=== PATIENT | male | born 1955 | race Caucasian/White ===

== ENCOUNTER 2018-08-29 10:08 | Inpatient (IN) ==
[2018-08-29] MEDS ORDERED: Isovue-370 500 ML BOTTLE IVP ONE ×2 (11:04→11:19)
[2018-08-29] MEDS ORDERED: Ondansetron ODT 4 MG TAB.RAPDIS SL ONE (11:04)
[2018-08-29 11:08] LABS: Basophils # 0.1 K/mcL (0.0-0.2); Basophils % 0.8 %; Eosinophils % 0.1 %; Hematocrit 46.1 % (37.5-50.1); Hemoglobin 14.9 g/dL (12.9-16.9); Immature Granulocytes % 0.4 % (0-4); Lymphocytes # 1.7 K/mcL (0.6-4.6); Lymphocytes % 20.3 %; Mean Corpuscular HGB Conc 32.3 g/dL (31.6-35.5); Mean Corpuscular Hemoglobin 27.3 pg (28.0-33.3); Mean Corpuscular Volume 84.4 fL (83.0-100.0); Mean Platelet Volume 11.4 fL (9.4-12.4); Monocytes # 1.5 K/mcL (0.0-1.3); Monocytes % 18.2 %; Platelet Count 185 K/mcL (140-400); Red Blood Count 5.46 M/mcL (4.19-5.50); Red Cell Distribution Width 13.4 % (11.5-14.5); Segmented Neutrophils % 60.2 %
[2018-08-29] MEDS ORDERED: Ipratropium/Albuterol Neb 3 ML IH ONE (11:19)
[2018-08-29] MEDS ORDERED: 0.9 % Sodium Chloride 500 ML IVC ONE (11:20)
[2018-08-29 11:23] LABS: BUN/Creatinine Ratio 11 (6-26); Blood Urea Nitrogen 13 mg/dL (8-23); Calcium 9.9 mg/dL (8.6-10.3); Carbon Dioxide 22 mEq/L (23-29); Chloride 102 mEq/L (98-107); Glucose 110 mg/dL (70-105); Osmolality,Calculated 279 (280-300); Potassium 4.3 mEq/L (3.5-5.1); Sodium 134 mEq/L (136-145); Troponin I < 0.03 ng/mL (< 0.04); eGFR For Non-African Americans > 60 (> 60)
[2018-08-29 11:28] LABS: Platelet Estimate Normal (Normal)
--- NOTE | 2018-08-29 12:26 | Emergency Department Note ---
Disposition Clinical Impression: Pre-syncope, Heart murmur, systolic, Dizziness, Nausea, Weakness Disposition: Admitted As Inpatient Condition: Fair Time of Disposition: 12:49 Dizziness HPI - General Chief Complaint: ED Dizziness Stated Complaint: Dizziness,vertigo,WES Time Seen by Provider: 08/29/18 10:56 Source: patient, family Mode of arrival: ambulatory Limitations: no limitations Nursing Notes Reviewed: Yes Vital Signs Reviewed: Yes - History of Present Illness HPI Narrative: 63 yo male with PMHx of hyperlipidemia presents to the emergency department with the chief complaint of dizziness. The patient states that he has been feeling dizzy, unsteady on his feet, and like he is walking through a tunnel for the past 6 weeks but it has severely worsened over the past 2 weeks. He has been seeing his physician outpatient and has already had a normal MRI of his head. He is scheduled to have an echocardiogram of his heart and carotid Doppler scans next Friday. He states the dizziness has been getting worse and he has also been having fevers. Highest temperature at home was 101.2 degrees Fahrenheit. He admits to generalized fatigue in addition to his previous symptoms. He does have increased dizziness with movement of his head but denies neck pain. The dizziness does not increase with looking up or down. He denies visual changes. He denies chest pain, shortness of breath, abdominal pain, nausea and vomiting. Patient states Dr. Espinosa is his primary care physician and states that he has had a worsening heart murmur during this time. From a grade 1 to now a grade 4. He has never seen a back joiner before. - Related Data Home Medications Medication Instructions Recorded Confirmed Loratadine [Claritin] 10 mg PO DAILY 11/17/15 08/29/18 Pravastatin Sodium [Pravachol] 40 mg PO DAILY 11/17/15 08/29/18 Ranitidine HCl [Heartburn Relief] 150 mg PO DAILY 11/17/15 08/29/18 Albuterol Sulfate [Albuterol 2 puff PO Q4-6H PRN 08/29/18 08/29/18 Inhaler] Ezetimibe 10 mg PO DAILY 08/29/18 08/29/18 Fluticasone Propionate Nasal 50 mcg NS DAILY 08/29/18 08/29/18 [Flonase] Glucosamine Sulfate Dipot Chlr 1,000 mg PO DAILY 08/29/18 08/29/18 [Glucosamine] Ipratropium/Albuterol Sulfate 3 mg PO BID PRN 08/29/18 08/29/18 [Iprat-Albut 0.5-3(2.5) mg/3 ml] [place]-3 Fatty Acids [Fish Oil] 300 mg PO DAILY 08/29/18 08/29/18 Allergies Allergy/AdvReac Type Severity Reaction Status Date / Time Sulfa (Sulfonamide Allergy See Verified 08/29/18 10:30 Antibiotics) Comments atorvastatin [From Lipitor] AdvReac Joint Pain Verified 08/29/18 10:30 rosuvastatin [From Crestor] AdvReac Joint Pain Verified 08/29/18 10:30 All systems ED: reviewed and negative except as stated. Review of Systems: As Per HPI Constitutional: Reports: fever, chills, weakness Eyes: Denies: vision change ENT ED: Denies: ear pain, throat pain Cardiovascular: Denies: chest pain, palpitations, dyspnea on exertion Respiratory: Denies: cough, dyspnea, wheezes Gastrointestinal: Denies: abdominal pain, nausea, vomiting, diarrhea Genitourinary: Denies: dysuria, hematuria Musculoskeletal: Denies: back pain, neck pain Neurological: Reports: weakness, numbness (bilateral back of arms with exertion), vertigo. Denies: headache, paresthesias Endocrine: Reports: fatigue Past Medical History - Past Medical History Attestation: Yes The following information was validated with the patient. Source: patient Medical history: Reports: asthma, hyperlipidemia, kidney stones Surgical history: Reports: other Psychiatric history: Reports: no psych history - Social History Smoking Status: Never smoker Smokeless Tobacco Status: No Alcohol use: Reports: occasionally Drug use: Reports: none Physical Exam - General Limitations: no limitations General appearance: alert, in no apparent distress - Head Head exam: atraumatic, normocephalic - Eye Eye exam: Present: normal appearance. Absent: nystagmus - ENT ENT exam: normal exam, normal oropharynx - Neck Neck exam: Present: normal inspection, other (Carotid auscultation associated with bilateral murmur referred from heart). Absent: tenderness, lymphadenopathy - Chest Chest inspection: Present: normal inspection. Absent: tenderness - Respiratory Respiratory exam: Present: normal lung sounds bilaterally. Absent: wheezes - Cardiovascular Cardiovascular exam: Present: regular rate, normal rhythm, systolic murmur (Grade 4) - Abdominal Exam Abdominal exam: Present: soft, Non-Tender. Absent: distention, guarding, rebound, rigidity - Extremities Exam Extremities exam: Present: normal inspection. Absent: tenderness, pedal edema - Neurological Exam Neurological exam: Present: alert, oriented X3 - Psychiatric Psychiatric exam: Present: normal affect, normal mood - Skin Skin exam: Present: warm, dry, intact Course Vital Signs Temperature 98.9 F 08/29/18 10:14 Pulse Rate 86 08/29/18 10:14 Respiratory Rate 16 08/29/18 10:14 Blood Pressure 128/72 08/29/18 10:14 O2 Sat by Pulse Oximetry 97 08/29/18 10:14 Temperature 98.9 F 08/29/18 10:36 Pulse Rate 80 08/29/18 12:18 Respiratory Rate 15 08/29/18 12:18 Blood Pressure 122/50 08/29/18 12:18 O2 Sat by Pulse Oximetry 91 08/29/18 12:18 Oxygen Delivery Oxygen Delivery Room Air Dizziness - MDM Narrative Medical decision making narrative: Patient presents with dizziness, fevers, generalized fatigue and worsening heart murmur after undergoing appropriate outpatient workup. He now feels that he will fall down if he stands up because he is so unsteady on his feet. This is worrisome for many acute problems such as carotid or basilar artery stenosis, subacute bacterial endocarditis, carotid stenosis. We will obtain a cardiac workup, draw cultures and do a CTA of the head and neck as the patient heart he has a normal MRI and stroke has been ruled out at this period. The patient will also be given meclizine and Zofran for his dizziness and nausea to see if these help with his symptoms. 1240 - patient's lab work is at his baseline. EKG does show some nonspecific changes that are not indicative of STEMI or STEMI at this time. Troponin was negative. Patient is feeling about the same. CTA of the head and neck did not show any vascular occlusion or shift of the brain. Patient still feels weak and as if he is cannot pass out if he stands up, therefore we will admit him for presyncope and have the echocardiogram expedited. Patient is agreeable with this plan of care. Hospitalist has been paged. - Medical Records Medical records reviewed: Yes I reviewed the patient's medical records. - Lab Data Lab results reviewed: Yes I reviewed the patient's lab results. Result diagrams: 08/29/18 10:40 08/29/18 10:40 Lab Results 08/29/18 08/29/18 Range/Units 10:40 10:40 WBC 8.3 (4.3-11.1) K/mcL RBC 5.46 (4.19-5.50) M/mcL Hgb 14.9 (12.9-16.9) g/dL Hct 46.1 (37.5-50.1) % MCV 84.4 (83.0-100.0) fL MCH 27.3 L (28.0-33.3) pg MCHC 32.3 (31.6-35.5) g/dL RDW 13.4 (11.5-14.5) % Plt Count 185 (140-400) K/mcL MPV 11.4 (9.4-12.4) fL Immature Gran % 0.4 (0-4) % Seg Neutrophils % 60.2 % Lymphocytes % 20.3 % Monocytes % 18.2 % Eosinophils % 0.1 % Basophils % 0.8 % Neutrophils # 5.0 (1.6-8.9) K/mcL Lymphocytes # 1.7 (0.6-4.6) K/mcL Monocytes # 1.5 H (0.0-1.3) K/mcL Eosinophils # 0.0 (0.0-0.6) K/mcL Basophils # 0.1 (0.0-0.2) K/mcL Platelet Estimate Normal (Normal) Sodium 134 L (136-145) mEq/L Potassium 4.3 (3.5-5.1) mEq/L Chloride 102 (98-107) mEq/L Carbon Dioxide 22 L (23-29) mEq/L BUN 13 (8-23) mg/dL Creatinine 1.15 (0.70-1.30) mg/dL Est GFR ( Amer) > 60 (> 60) Est GFR (Non-Af Amer) > 60 (> 60) BUN/Creatinine Ratio 11 (6-26) Glucose 110 H (70-105) mg/dL Calculated Osmolality 279 L (280-300) Calcium 9.9 (8.6-10.3) mg/dL Troponin I < 0.03 (< 0.04) ng/mL - Radiology Data Radiology results reviewed: Yes I reviewed the patient's radiology results. Chest X-Ray 08/29/18 10:50 IMPRESSION: No acute findings in the chest. D/ / Kishan Vizcaino MD / Kishan Vizcaino MD Interpreting Provider: Kishan Vizcaino MD Neck CTA 08/29/18 11:04 IMPRESSION: Unremarkable CTA of the head and neck. D/ / Karl Rodriguez MD / Karl Rodriguez MD Interpreting Provider: Karl Rodriguez MD Head CTA 08/29/18 11:19 IMPRESSION: Unremarkable CTA of the head and neck. D/ / Karl Rodriguez MD / Karl Rodriguez MD Interpreting Provider: Karl Rodriguez MD - EKG Data EKG attestation: Yes I reviewed and interpreted this EKG. EKG results narrative: EKG obtained at 10:0. Heart rate 79 bpm, SC interval 135, QRS duration 96, QT 429, QTC 492 Sinus rhythm with evidence of left ventricular hypertrophy. Borderline prolonged QT interval. Minor ST segment elevation in leads V1 through V3 that are likely repolarization abnormalities not indicative of STEMI. ST depressions in leads 2 and 3. No other significant changes when compared to previous EKG dated 12/09/2014. Attestation Statement - Attestation Attestation: Resident Attestation: I examined this patient and my medical decision making was reviewed with the Resident Physician. I agree with the documented findings, disposition and treatment plan as described except to the extent set forth below. We independently had [id number] contact with the patient. Patient presenting for evaluation of dizziness. Dizziness worse with standing. Patient has associated feeling as if he is going to pass out as well as ataxia with initial standing. Patient's symptoms have been progressively worsening. Patient does have a significant heart murmur which she states his family doctor has told him is getting worse and has referred him to for outpatient echo as well as carotid ultrasounds. Patient has had an MRI which did not show any acute abnormalities per patient. Due to the patient's significant symptoms he will undergo further evaluation for the dizziness and near syncopal episodes. Patient will likely require admission secondary to need for echocardiogram. Patient has reported intermittent fevers. Nonspecific in nature. Patient does not have altered mental status or any signs of meningismus. Full range of motion of the neck.
[2018-08-29] MEDS ORDERED: Naloxone 0.4 MG/ML INJ IVP PRN (12:50)
[2018-08-29] MEDS ORDERED: Ondansetron 4 MG/2 ML VIAL IVP PRN (12:52)
--- NOTE | 2018-08-29 13:55 | Internal Med History&Physical ---
Date of Encounter: 08/29/18 Time of Encounter: 13:00 Internal Medicine - H&P: HPI Chief complaint: Dizziness, shortness of breath, fevers History of present illness: Mr. Haskins is a 63 year old male with pmh of asthma, kidney stones presenting with complaints of dizziness of 6 weeks duration that has gotten acutely worse in the last 3 days . 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 he describes the sensation as a feeling of walking in a tunnel. He hasn't passed out and denies feeling like things are spinning around him. He just describes a sensation of an unsteady gait. He has been experiencing worsening fevers in the last 3 days to the point where he says he can't work which is unusual for him, he also describes generalized fatigue. he went to his PCP earlier this week and had an MRI done which came back with no acute findings. He does state that his PCP noted he had a new loud murmur. He also took his temperature at home and says it was 101. In the ER, a head and neck CTA were negative and he's being admitted for further management Past Med Surg Social Fam HX - Past Medical History Medical history: asthma, hyperlipidemia, kidney stones Additional medical history: hiatal hernia, Psychiatric history: no psych history - Past Surgical History Surgical History: other Additional surgical history: lithotripsy, right knee scope, - Social History Smoking Status: Never smoker Smokeless Tobacco Status: No Alcohol use: occasionally Drug use: none Internal Medicine - H&P: Meds Loratadine [Claritin] 10 mg PO DAILY 11/17/15 [History] Pravastatin Sodium [Pravachol] 40 mg PO DAILY 11/17/15 [History] Ranitidine HCl [Heartburn Relief] 150 mg PO DAILY 11/17/15 [History] Albuterol Sulfate [Albuterol Inhaler] 2 puff PO Q4-6H PRN 08/29/18 [History] Ezetimibe 10 mg PO DAILY 08/29/18 [History] Fluticasone Propionate Nasal [Flonase] 50 mcg NS DAILY 08/29/18 [History] Glucosamine Sulfate Dipot Chlr [Glucosamine] 1,000 mg PO DAILY 08/29/18 [History] Ipratropium/Albuterol Sulfate [Iprat-Albut 0.5-3(2.5) mg/3 ml] 3 mg PO BID PRN 08/29/18 [History] [place]-3 Fatty Acids [Fish Oil] 300 mg PO DAILY 08/29/18 [History] Allergy/AdvReac Type Severity Reaction Status Date / Time Sulfa (Sulfonamide Allergy See Verified 08/29/18 10:30 Antibiotics) Comments atorvastatin [From Lipitor] AdvReac Joint Pain Verified 08/29/18 10:30 rosuvastatin [From Crestor] AdvReac Joint Pain Verified 08/29/18 10:30 All Systems PM: A 10-system review of systems was performed and is negative for pertinent findings except as documented above in the HPI. - Constitutional Constitutional: fever(s), no chills, no night sweats - EENT Eyes: no change in vision, no discharge, no pain, no photophobia Ears: no ear discharge, no ear pain, no tinnitus Nose, mouth and throat: no dysphagia, no nasal discharge, no neck pain, no sore throat - Cardiovascular Cardiovascular ROS IM: no chest pain, no diaphoresis, no dyspnea, no lightheadedness, no palpitations, no syncope - Respiratory Respiratory: no cough, no dyspnea, no wheezing, no excessive phlegm production - Gastrointestinal Gastrointestinal: no abdominal pain, no diarrhea, no hematemesis, no hematochezia, no melena, no nausea, no vomiting - Musculoskeletal Musculoskeletal ROS IM: no numbness, no tingling - Integumentary Integumentary IM: no rash, no unusual bruising - Neurological Neurological ROS: dizziness, no confusion, no convulsions, no focal weakness, no numbness, no tingling, no tremor(s) - Hematologic/Lymphatic Hematologic/Lymphatic: no easy bruising - Constitutional Vitals: Temp Pulse Resp BP Pulse Ox 98.9 F 79 16 121/59 96 08/29/18 10:36 08/29/18 13:48 08/29/18 13:48 08/29/18 13:48 08/29/18 13:48 General appearance: Present: mild distress Exam: Appears toxic looking - Head Head exam: Present: atraumatic, normocephalic - Eye Eye exam: Present: PERRL, conjuntiva pink, sclera anicteric Pupils: Present: PERRL - Neck Neck exam general surgery: Present: supple, trachea midline. Absent: lymphadenopathy - Respiratory Respiratory exam: Present: CTAB. Absent: accessory muscle use, rales, rhonchi, wheezes - Cardiovascular Cardiovascular exam: Present: RRR, +S1, +S2. Absent: diastolic murmur, gallop, rubs, systolic murmur - GI/Abdominal GI/Abdominal exam: Present: normal bowel sounds, soft, no peritoneal signs. Absent: distended, tenderness - Extremities Exam Extremities exam: Present: warm, radial pulses palpable and symmetrical. Absent: calf tenderness, cyanotic, pedal edema - Neurological Exam Neurological exam: Present: CN II-XII intact, oriented X3, no focal deficits. Absent: pronater drift, facial droop, speech deficit - Skin Skin exam: Present: dry, intact Internal Med - H&P Results - Labs CBC & Chem 7: 08/29/18 10:40 08/29/18 10:40 Labs: Short CBC 08/29/18 Range/Units 10:40 WBC 8.3 (4.3-11.1) K/mcL Hgb 14.9 (12.9-16.9) g/dL Hct 46.1 (37.5-50.1) % Plt Count 185 (140-400) K/mcL Neutrophils # 5.0 (1.6-8.9) K/mcL BMP 08/29/18 10:40 Sodium 134 L Potassium 4.3 Chloride 102 Carbon Dioxide 22 L BUN 13 Creatinine 1.15 Glucose 110 H Calcium 9.9 Cardiac Enzymes 08/29/18 Range/Units 10:40 Troponin I < 0.03 (< 0.04) ng/mL - Impressions ITS Impressions Chest X-Ray 08/29/18 10:50 IMPRESSION: No acute findings in the chest. D/ / Kishan Vizcaino MD / Kishan Vizcaino MD Interpreting Provider: Kishan Vizcaino MD Neck CTA 08/29/18 11:04 IMPRESSION: Unremarkable CTA of the head and neck. D/ / Karl Rodriguez MD / Karl Rodriguez MD Interpreting Provider: Karl Rodriguez MD Head CTA 08/29/18 11:19 IMPRESSION: Unremarkable CTA of the head and neck. D/ / Karl Rodriguez MD / Karl Rodriguez MD Interpreting Provider: Karl Rodriguez MD - Assessment and Plan (1) Dizziness Current Visit: Yes Status: Acute Assessment and plan: Pt presents with dizziness of 6 weeks duration, new murmur and fevers of 3 days duration Unclear etiology. MRI and CT negative for stroke Differentials include vertigo vs query infective endocarditis vs valvular heart disease such as aortic stenosis causing dizziness Will obtain cultures. Start emprically on vanc and ceftriaxone in light of fever and new murmur. (Has no classic risk factor for IE but has unexplained fevers) Obtain 2D echo. D/c antibiotics if blood cultures and echo show no sign of infection Will give IV fluids and meclizine PRN. Neurology consulted and appreciate recs (2) Subacute endocarditis Current Visit: Yes Status: Acute Assessment and plan: See #1. continue antibiotics. Obtain blood cultures Obtain 2D echo Qualifiers: Qualified Code(s): I33.9 - Acute and subacute endocarditis, unspecified (3) DVT prophylaxis Current Visit: Yes Status: Acute Assessment and plan: heparin sc - Time Spent With Patient Total time spent is greater than 50% in coordination of care (as documented) at patient's floor/unit and/or counseling patient:
[2018-08-29 14:11] LABS: Troponin I < 0.03 ng/mL (< 0.04)
[2018-08-29 14:25] LABS: Thyroid Stimulating Hormone 0.813 mcIU/mL (0.340-5.600)
[2018-08-29] MEDS: cefTRIAXone 1,000 MG in Water for inj. (sterile) 20 ML 10 ML IVP SCH (15:43)
[2018-08-29] MEDS: 0.9 % Sodium Chloride 1,000 ML IVC SCH (15:43)
[2018-08-29] MEDS: Acetaminophen 325 MG TABLET PO PRN (18:33)
[2018-08-29] MEDS ORDERED: Ibuprofen 600 MG TABLET PO ONE (20:28)
[2018-08-30 02:17] LABS: Basophils # 0.1 K/mcL (0.0-0.2); Basophils % 0.8 %; Eosinophils % 0.6 %; Hematocrit 40.7 % (37.5-50.1); Immature Granulocytes % 0.2 % (0-4); Lymphocytes # 1.8 K/mcL (0.6-4.6); Lymphocytes % 26.7 %; Mean Corpuscular HGB Conc 32.4 g/dL (31.6-35.5); Mean Corpuscular Hemoglobin 27.6 pg (28.0-33.3); Mean Platelet Volume 11.6 fL (9.4-12.4); Monocytes # 1.1 K/mcL (0.0-1.3); Monocytes % 17.3 %; Neutrophils # 3.6 K/mcL (1.6-8.9); Platelet Count 160 K/mcL (140-400); Red Blood Count 4.79 M/mcL (4.19-5.50); Red Cell Distribution Width 13.8 % (11.5-14.5); Segmented Neutrophils % 54.4 %
[2018-08-30 02:18] LABS: Hemoglobin 13.2 g/dL (12.9-16.9)
[2018-08-30 02:35] LABS: BUN/Creatinine Ratio 11 (6-26); Blood Urea Nitrogen 13 mg/dL (8-23); Calcium 8.8 mg/dL (8.6-10.3); Carbon Dioxide 23 mEq/L (23-29); Chloride 104 mEq/L (98-107); Glucose 148 mg/dL (70-105); Osmolality,Calculated 283 (280-300); Phosphorous 3.8 mg/dL (2.7-4.5); Potassium 3.6 mEq/L (3.5-5.1); Sodium 135 mEq/L (136-145); eGFR For Non-African Americans > 60 (> 60)
[2018-08-30] MEDS: 0.9 % Sodium Chloride 1,000 ML IVC SCH ×2 (02:54→13:18)
[2018-08-30] MEDS: Acetaminophen 325 MG TABLET PO PRN ×3 (06:13→20:54)
[2018-08-30] MEDS: cefTRIAXone 1,000 MG in Water for inj. (sterile) 20 ML 10 ML IVP SCH (10:35)
--- NOTE | 2018-08-30 10:40 | Neurology - Consult Note ---
Date of Encounter: 08/30/18 Time of Encounter: 10:31 Assessment and Plan (1) Dizziness Current Visit: Yes Status: Acute Patient has been experiencing subacute onset, persistent dizziness described as lightheadedness, with slight balance difficulty no significant otological symptoms, without any significant focal neurological deficits. MRI of brain show ed no acute intracranial abnormality. Patient has spiking fever along with diaphoresis therefore the symptoms likely related ongoing systemic feverish illness. 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 Interestingly patient also reports bilateral arm paresthesia and subtle weakness to the left arm which occurred almost 4 weeks ago and i saw no focal weakness at this time therefore i would recommend getting an MRI of cervical spine without contrast to assess possibility of transverse myelitis. However, patient currently does not have signs of myelopathy, he has no focal weakness no brisk DTRs and no urinary symptoms. course of illness already more than 4 weeks in duration but neurological examination is nonfocal, in the beginning he was reporting dizziness increasing dyspnea on exertion, paresthesia in arms and weak hands which are somewhat difficult to localize and symptoms persisted for 4 weeks without evolution. Overall speaking not convinced that this is neurological but would recommend getting MRI of cervical spine due to presence of arm paresthesia. MRI of brain and CTA of neck and head reviewed and laboratory studies also reviewed personally. All questions answered I spent 60 minutes face to face with the patient, of which more than 50% of time was spent in counselling and coordination of care History of Present Illness Chief complaint: dizziness, spiking fever and arm numbness HPI: Mr. Haskins is a 63 year old male with PMH significant for heart murmur, OA, GERD, HLD, asthma who presented to ER with subacute onset of dizziness, spiking fever, malaise, paresthesia in his arms and hand weakness. The symptoms apparently started few weeks ago without any significant provoking factors. Symptoms started at least 4 weeks ago he reported a sensation of numbness and tingling in his arms slightly worse on the left side. He also reports some weakness and clumsiness to his left hand as well. However, he did not report any significant weakness although in the beginning he reported some dropping things from his hands. He reports dizziness and lightheadedness but not her room spinning sensation. He is not nauseated. He denies any significant hearing difficulty or ringing in the ears. He is able to walk but has been feeling unsteady on his feet. Over the last few days, he was found to have spiking fever as high as 101 Fahrenheit. When he spikes a fever he reports a slight frontal headache. Apparently he saw Dr. Braxton Espinosa 08/20/2018 who ordered MRI of brain and ca rotid artery duplex study and this was performed 08/26/2018 which was reported no acute intracranial abnormality. CTA of neck and head at ER showed no flow limiting arterial stenosis. At the time of the interview, patient feels dizzy and unsteady and he is also clammy but is able to walk without difficulty. He has no significant weakness at this time. Past Med Surg Social Fam HX - Past Medical History Medical history: asthma, hyperlipidemia, kidney stones Additional medical history: hiatal hernia, Psychiatric history: no psych history - Past Surgical History Surgical History: herniorrhaphy Additional surgical history: lithotripsy, right knee scope, - Social History Smoking Status: Never smoker Smokeless Tobacco Status: No Alcohol use: occasionally Drug use: none - Family History Mother Age: 89 Living Status: Still Living Hx Family Cardiac Disorders: Yes (murmur) Hx Family Neurologic Disorders: Yes (CVA) Medications and Allergies Loratadine [Claritin] 10 mg PO DAILY 11/17/15 [History] Pravastatin Sodium [Pravachol] 40 mg PO DAILY 11/17/15 [History] Ranitidine HCl [Heartburn Relief] 150 mg PO DAILY 11/17/15 [History] Albuterol Sulfate [Albuterol Inhaler] 2 puff PO Q4-6H PRN 08/29/18 [History] Ezetimibe 10 mg PO DAILY 08/29/18 [History] Fluticasone Propionate Nasal [Flonase] 50 mcg NS DAILY 08/29/18 [History] Glucosamine Sulfate Dipot Chlr [Glucosamine] 1,000 mg PO DAILY 08/29/18 [History] Ipratropium/Albuterol Sulfate [Iprat-Albut 0.5-3(2.5) mg/3 ml] 3 mg PO BID PRN 08/29/18 [History] Wickes-3 Fatty Acids [Fish Oil] 300 mg PO DAILY 08/29/18 [History] Allergy/AdvReac Type Severity Reaction Status Date / Time Sulfa (Sulfonamide Allergy See Verified 08/29/18 10:30 Antibiotics) Comments atorvastatin [From Lipitor] AdvReac Joint Pain Verified 08/29/18 10:30 rosuvastatin [From Crestor] AdvReac Joint Pain Verified 08/29/18 10:30 All Systems: The remainder of the systems were reviewed and are negative - Constitutional Constitutional ROS IM: fever(s) (yes), frequent falls (no), headache(s) (yes), malaise (yes) - Nose, Mouth, Throat Nose, mouth and throat: disequilibrium (yes), dizziness (yes), headache(s) (yes), sore throat (No) - Cardiovascular Cardiovascular ROS IM: chest pain (No), chest pain at rest (No), claudication (No), diaphoresis (yes), edema (No), lightheadedness (NO) - Respiratory Respiratory IM: cough (No), dyspnea (No), hemoptysis (NO), dyspnea on exertion (No), wheezing (No) - Gastrointestinal Gastrointestinal: abdominal pain (No), diarrhea - Genitourinary Genitourinary ROS: difficulty urinating (No), difficulty voiding (No) - Musculoskeletal Musculoskeletal ROS IM: abnormal gait (Yes), arthralgias (No), back pain (No), muscle weakness (No) - Neurological Neurological ROS: abnormal gait (Yes), dizziness (Yes), headache(s) (Yes), loss of vision (No), numbness (Yes) - Psychiatric Psychiatric general PM: abnormal sleep pattern (No), anxiety (No), auditory hallucinations (No), behavioral changes (No) - Hematologic/Lymphatic Hematologic/Lymphatic pediatric: easy bleeding (No), easy bruising (No) Physical Examination - Vital Signs Vital Signs: Initial Vital Signs Temp Pulse Resp BP Pulse Ox 98.9 F 86 16 128/72 97 08/29/18 10:14 08/29/18 10:14 08/29/18 10:14 08/29/18 10:14 08/29/18 10:14 - Constitutional General appearance: acutely ill - Neurologic Sensorimotor examination: intact Detailed motor examination: grossly full strength in all extremities Motor examination - right side: 5/5: deltoids, biceps, triceps, wrist flexion, wrist extension, hospital receptionist, hip flexors, tibialis Anterior, quadriceps, toe extension (EHL), plantarflexion Motor examination - left side: 5/5: deltoids, biceps, triceps, wrist flexion, wrist extension, hip flexors, hospital receptionist, quadriceps, tibialis Anterior, toe extension (EHL), plantarflexion Detailed sensory examination: intact Posture: other (None) Reflex and gait examination: other (Gait is slightly unsteady but able to correct posture and turn. No ataxic gait, no spastic gait) Reflexes: Biceps: 1+, Triceps: 1+, Brachioradialis: 1+, Patella: 1+, Achilles: 1+ Mental Status Examination: awake, alert, oriented to person, oriented to place, oriented to time, follows commands appropriately, answers questions appropriately, no agnosia, no aphasia, no aproxia Cranial nerve examination: PERRL, EOMI, visual peñaloza intact, corneal reflexes brisk symmetrically, sensory to face intact, mastication intact, no facial asymmetry is present, no dysarthria, hearing is intact symmetrically, soft palate elevates bilaterally upon phonation, gag reflex intact, flexes SCM and trapezius muscles symmetrically with full power, tongue protrudes midline, no atrophy or facial fasiculations present Results - Laboratory Findings CBC and BMP: 08/30/18 01:22 08/30/18 01:22 Abnormal lab findings: Abnormal lab results MCH 27.6 pg (28.0-33.3) L 08/30/18 01:22 1.5 K/mcL (0.0-1.3) H 08/29/18 10:40 Sodium 135 mEq/L (136-145) L 08/30/18 01:22 Carbon Dioxide 22 mEq/L (23-29) L 08/29/18 10:40 Glucose 148 mg/dL (70-105) H 08/30/18 01:22 279 (280-300) L 08/29/18 10:40 - Diagnostic Findings Additional findings: CTA OF THE NECK; CTA OF THE HEAD WITHOUT AND WITH CONTRAST 08/29/2018 12:09 pm; 08/29/2018 12:10 pm: TECHNIQUE: CTA of the neck was performed with the administration of intravenous contrast. Multiplanar reformatted images are provided for review. MIP images are provided for review. Stenosis of the internal carotid arteries measured using NASCET criteria. Dose modulation, iterative reconstruction, and/or weight based adjustment of the mA/kV was utilized to reduce the radiation dose to as low as reasonably achievable.; CTA of the head/brain was performed without and with the administration of intravenous contrast. Multiplanar reformatted images are provided for review. MIP images are provided for review. Dose modulation, iterative reconstruction, and/or weight based adjustment of the mA/kV was utilized to reduce the radiation dose to as low as reasonably achievable. COMPARISON: None. HISTORY: ORDERING SYSTEM PROVIDED HISTORY: r/o carotid/basilar artery disease 75 ml of [id number] ; ORDERING SYSTEM PROVIDED HISTORY: vertigo; lightheaded 75 ml of [id number] FINDINGS: CTA NECK: AORTIC ARCH/ARCH VESSELS: There is a normal branch pattern of the aortic arch. No significant stenosis is seen of the innominate artery or subclavian arteries. CAROTID ARTERIES: The common carotid arteries are normal in appearance without evidence of a flow limiting stenosis. The internal carotid arteries are normal in appearance without evidence of a flow limiting stenosis by NASCET criteria. No dissection or arterial injury is seen. VERTEBRAL ARTERIES: The vertebral arteries both arise from the subclavian arteries and are normal in caliber without evidence of flow limiting stenosis or dissection. SOFT TISSUES: The lung apices are clear. No cervical or superior mediastinal lymphadenopathy. The visualized portion of the larynx and pharynx appear unremarkable. The parotid, submandibular and thyroid glands demonstrate no acute abnormality. BONES: The visualized osseous structures appear unremarkable. CTA HEAD: ANTERIOR CIRCULATION: The internal carotid arteries are normal in course and caliber without focal stenosis. The anterior cerebral and middle cerebral arteries demonstrate no focal stenosis. POSTERIOR CIRCULATION: The posterior cerebral arteries demonstrate no focal stenosis. The vertebral and basilar arteries appear unremarkable. BRAIN: No mass effect or midline shift. No abnormal extra-axial fluid collection. The sims-white differentiation appears grossly maintained. CT/CT angio neck IMPRESSION: Unremarkable CTA of the head and neck. D/ / Karl Rodriguez MD / Karl Rodriguez MD Interpreting Provider: Karl Rodriguez MD Consult Discharge Plan - Plan Referrals: Braxton Espinosa MD [Partnered Physician] - 09/17/18 4:15 pm
--- NOTE | 2018-08-30 11:48 | Internal Med Progress Note ---
Hospitalist Progress Note - Encounter Date of Encounter: 08/30/18 Time of Encounter: 11:46 - Subjective Interval History: patient seen and examined at bedside- neurologically intact - discussed treatment plan with the patient- awaiting echo results appreciate neurology recommendations - Exam Vitals: Temp Pulse Resp BP Pulse Ox 98.2 F 69 17 99/54 96 08/30/18 11:28 08/30/18 11:28 08/30/18 11:28 08/30/18 11:28 08/30/18 11:28 Exam: Skin: Free of rash and discoloration.Warm and moist Eyes: Sclera is white. There is no discharge from eyes. ENMT: Oral/pharyngeal mucosa is normal in appearance. There is no discharge from nose or ears. Respiratory: Normal breath sounds with no crackles and wheezes bilaterally. CV: Heart is regular with no gallop , 3/6 ystolic murmur GI: Abdomen is flat and soft with no palpable mass or visceromegaly. : There is no tenderness in patient's flanks bilaterally. Neuro exam: He has good strength in upper and lower extremities. He has normal eye movements. Psychiatric: He has normal affect. His thought process is appropriate to the situation. - Assessment and Plan (1) Dizziness Current Visit: Yes Status: Acute Assessment and Plan: Pt presents with dizziness of 6 weeks duration, new murmur and fevers of 3 days duration Unclear etiology. MRI and CT negative for stroke Differentials include vertigo vs query infective endocarditis vs valvular heart disease such as aortic stenosis causing dizziness Will obtain cultures. Start emprically on vanc and ceftriaxone in light of fever and new murmur. (Has no classic risk factor for IE but has unexplained fevers) Obtain 2D echo. D/c antibiotics if blood cultures and echo show no sign of infection Will give IV fluids and meclizine PRN. Neurology consulted and appreciate recs- will obtain cervical MRI (2) Subacute endocarditis Current Visit: Yes Status: Acute Assessment and Plan: See #1. continue antibiotics. Obtain blood cultures- pending Obtain 2D echo- pending (3) DVT prophylaxis Current Visit: Yes Status: Acute Assessment and Plan: heparin sc - Time Spent with Patient Total time spent is greater than 50% in coordination of care (as documented) at patient's floor/unit and/or counseling patient: Internal Medicine: Result - Labs CBC & Chem 7: 08/30/18 01:22 08/30/18 01:22 Labs: Short CBC 08/30/18 Range/Units 01:22 WBC 6.6 (4.3-11.1) K/mcL Hgb 13.2 D (12.9-16.9) g/dL Hct 40.7 (37.5-50.1) % Plt Count 160 (140-400) K/mcL Neutrophils # 3.6 (1.6-8.9) K/mcL BMP 08/30/18 01:22 Sodium 135 L Potassium 3.6 Chloride 104 Carbon Dioxide 23 BUN 13 Creatinine 1.18 Glucose 148 H Calcium 8.8 Cardiac Enzymes 08/29/18 08/29/18 08/30/18 Range/Units 13:23 19:06 01:22 Troponin I < 0.03 0.03 < 0.03 (< 0.04) ng/mL - Impressions Impressions Neck CTA 08/29/18 11:04 IMPRESSION: Unremarkable CTA of the head and neck. D/ / Karl Rodriguez MD / Karl Rodriguez MD Interpreting Provider: Karl Rodriguez MD Head CTA 08/29/18 11:19 IMPRESSION: Unremarkable CTA of the head and neck. D/ / Karl Rodriguez MD / Karl Rodriguez MD Interpreting Provider: Karl Rodriguez MD Consult Discharge Plan - Plan Referrals: Braxton Espinosa MD [Partnered Physician] - 09/17/18 4:15 pm (2) Subacute endocarditis Qualifiers: Qualified Code(s): I33.9 - Acute and subacute endocarditis, unspecified
[2018-08-30] MEDS ORDERED: Ipratropium/Albuterol Neb 3 ML IH PRN (13:47)
[2018-08-30 17:25] LABS: Adenovirus Not Detected (Not Detect); Bordetella Pertussis Not Detected (Not Detect); Chlamydophila pneumoniae Not Detected (Not Detect); Coronavirus 229E Not Detected (Not Detect); Coronavirus HKU1 Not Detected (Not Detect); Coronavirus NL63 Not Detected (Not Detect); Coronavirus OC43 Not Detected (Not Detect); Human Metapneumovirus Not Detected (Not Detect); Human Rhinovirus/Enterovirus Not Detected (Not Detect); Influenza A Subtype 2009 H1 Not Detected (Not Detect); Influenza A Untypeable Not Detected (Not Detect); Influenza B Not Detected (Not Detect); Mycoplasma pneumoniae Not Detected (Not Detect); Parainfluenza Virus 1 Not Detected (Not Detect); Parainfluenza Virus 2 Not Detected (Not Detect); Parainfluenza Virus 3 Not Detected (Not Detect); Parainfluenza Virus 4 Not Detected (Not Detect); Respiratory Syncytial Virus Not Detected (Not Detect)
[2018-08-30 21:50] LABS: Bilirubin,Urine Negative (Negative); Blood,Urine Negative (Negative); Clarity,Urine Clear (Clear); Color,Urine Yellow (Yellow); Glucose,Urine (UA) Normal (Normal); Ketones,Urine Negative (Negative); Leukocyte Esterase,Urine Negative (Negative); Nitrite,Urine Negative (Negative); Protein,Urine Negative (Neg-Trace); Specific Gravity,Urine 1.016 (1.010-1.025); Urobilinogen,Urine Normal (Normal)
[2018-08-31] MEDS: 0.9 % Sodium Chloride 1,000 ML IVC SCH ×4 (00:20→20:57)
[2018-08-31 02:51] LABS: Basophils # 0.1 K/mcL (0.0-0.2); Eosinophils # 0.1 K/mcL (0.0-0.6); Eosinophils % 1.9 %; Hematocrit 41.5 % (37.5-50.1); Hemoglobin 13.4 g/dL (12.9-16.9); Immature Granulocytes % 0.1 % (0-4); Lymphocytes # 1.9 K/mcL (0.6-4.6); Lymphocytes % 27.5 %; Mean Corpuscular HGB Conc 32.3 g/dL (31.6-35.5); Mean Corpuscular Hemoglobin 27.9 pg (28.0-33.3); Mean Corpuscular Volume 86.3 fL (83.0-100.0); Mean Platelet Volume 11.7 fL (9.4-12.4); Monocytes # 1.3 K/mcL (0.0-1.3); Monocytes % 18.4 %; Neutrophils # 3.6 K/mcL (1.6-8.9); Platelet Count 144 K/mcL (140-400); Red Blood Count 4.81 M/mcL (4.19-5.50); Segmented Neutrophils % 51.1 %
[2018-08-31 03:31] LABS: BUN/Creatinine Ratio 9 (6-26); Blood Urea Nitrogen 10 mg/dL (8-23); Calcium 8.6 mg/dL (8.6-10.3); Carbon Dioxide 25 mEq/L (23-29); Chloride 105 mEq/L (98-107); Glucose 93 mg/dL (70-105); Osmolality,Calculated 283 (280-300); Platelet Estimate Normal (Normal); Potassium 4.5 mEq/L (3.5-5.1); Sodium 137 mEq/L (136-145); eGFR For Non-African Americans > 60 (> 60)
[2018-08-31] MEDS: *HR* Heparin 5,000 UNIT/ML VIAL SQ SCH ×2 (05:45→17:04)
[2018-08-31] MEDS: Acetaminophen 325 MG TABLET PO PRN ×2 (06:55→18:25)
[2018-08-31] MEDS: Famotidine 20 MG TABLET PO SCH (08:04)
[2018-08-31] MEDS: Loratadine 10 MG TABLET PO SCH (08:04)
[2018-08-31] MEDS: cefTRIAXone 1,000 MG in Water for inj. (sterile) 20 ML 10 ML IVP SCH (08:05)
[2018-08-31] MEDS: (Omega-3 Fatty Acids [Fish Oil] 300 MG) PO SCH (08:07)
[2018-08-31] MEDS: (Ezetimibe 10 MG) PO SCH (08:07)
--- NOTE | 2018-08-31 10:01 | Neurology Progress Note ---
<Edouard Thompson J - Last Filed: 08/31/18 12:33> Date of Encounter: 08/31/18 Time of Encounter: 10:01 Assessment and Plan (1) Dizziness Current Visit: Yes Status: Acute Neuro seen in follow-up for evaluation of dizziness/lightheadedness and bi lateral arm paresthesias. Clinically, the patient remained stable without any new neurological deficits. His neuro exam remained nonfocal and nonlateralizing. 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 I am still unable to rectify the cause of bilateral arm paresthesias. Again, there are no signs of myelopathy as he has no focal weakness and does not have brisk DTRs. MRI of the C-spine shows minimal spinal canal stenosis at C5-C6 and C6-C7. There is neural foraminal narrowing at C4-C5 through C6-C7 additionally, there is straightening of the normal cervical lordosis without evidence of spondylolisthesis. In the absence of acute MRI findings symptoms are likely not neurological in origin. Subjective Principal diagnosis: Dizziness, bilateral arm paresthesias Interval history: Patient seen in follow-up for dizziness and bilateral arm paresthesias. He reports that this morning he is able to walk around without episodes of dizziness. However, the paresthesias continue to wax and wane. He also notes that he is having fevers, malaise and profuse diaphoresis. The fevers are low grade and occurring approximately every 4 hours. Otherwise, there are no new complaints overnight and the patient remained stable. Objective - Constitutional Vitals: Temp Pulse Resp BP Pulse Ox 100.9 F H 78 20 121/66 95 08/31/18 06:48 08/31/18 06:48 08/31/18 06:48 08/31/18 06:48 08/31/18 06:48 Exam: Examination: General Examination: *CONSTITUTIONAL: Alert and oriented x3, no acute distress *GENERAL APPEARANCE OF PATIENT appears healthy and well groomed *EYES: pupils equal, round, reactive to light and accommodation, conjunctiva clear *CARDIOVASCULAR Grade 3 murmur, no peripheral edema, distal temperature normal, dorsalis pedis pulses normal. see vital signs Musculoskeletal: *GAIT AND STATION normal, with normal Romberg testing, no abnormalities such as broad base gait or spasticity *ASSESSMENT OF MUSCLE STRENGTH IN THE UPPER AND LOWER EXTREMITIES bilateral deltoid, bicep, tricep, legal office administrator strength, hip flexors ,anterior tibialis, dorsoflexion of the foot 5/5 *MUSCLE TONE IN THE UPPER AND LOWER EXTREMITIES normal. No abnormal movements, fasciculations or atrophy identified. Neurological: *ORIENTATION to person, situation, time and place *RECURRENT AND REMOTE MEMORY intact *ATTENTION AND CONCENTRATION are normal *LANGUAGE FUNCTION no significant aphasia or dysarthia was noted. *FUND OF KNOWLEDGE aware of current events, past history, vocabulary *MENTAL attention span and concentration normal. *CN II optic fundi were normal, no papilledema noted. *CN III,IV, PERRLA extraocular eye movements were full, no nystagmus and no ptosis noted. *CN V shows normal sensation and jaw opens symmetrically. *CN VII shows normal facial movement symmetrically, upper and lower bilaterally. *CN VIII shows no significant hearing loss on exam *CN IX,,X palate elevated symmetrically *CN XI normal strength in the sternocleidomastoid muscles, symmetrical shoulder shrugging. *CN XII tongue protruded in the midline, with normal strength and movement. *SENSORY EXAMINATION light touch intact *REFLEXES: deep tendon reflexes were normal and symmetrical , grade 2/4 diffusely, no pathological reflexes were noted. *CEREBELLAR TESTING normal finger to nose, heel/knee/stokes *PAIN LEVEL 0/10 - Neurological Exam Sensorimotor examination: Present: intact Motor Examination: Present: grossly full strength in all extremities Motor examination - left side: 5/5: deltoids, biceps, triceps, wrist flexion, wrist extension, hip flexors, legal office administrator, quadriceps, tibialis Anterior, toe extension (EHL), plantarflexion Sensation intact: Present: intact Posture: Present: other (None) Reflex and gait examination: other (Gait is slightly unsteady but able to correct posture and turn. No ataxic gait, no spastic gait) Mental Status Examination: Present: awake, alert, oriented to person, oriented to place, oriented to time, follows commands appropriately, answers questions appropriately, no agnosia, no aphasia, no aproxia Cranial nerve examination: Present: PERRL, EOMI, visual peñaloza intact, corneal reflexes brisk symmetrically, sensory to face intact, mastication intact, no facial asymmetry is present, no dysarthria, hearing is intact symmetrically, soft palate elevates bilaterally upon phonation, gag reflex intact, flexes SCM and trapezius muscles symmetrically with full power, tongue protrudes midline, no atrophy or facial fasiculations present Results - Laboratory Findings CBC and BMP: 08/31/18 02:03 08/31/18 02:03 Abnormal lab findings: Abnormal lab results MCH 27.9 pg (28.0-33.3) L 08/31/18 02:03 1.5 K/mcL (0.0-1.3) H 08/29/18 10:40 ESR 32 mm/hr (0-10) H 08/30/18 14:31 Sodium 135 mEq/L (136-145) L 08/30/18 01:22 Carbon Dioxide 22 mEq/L (23-29) L 08/29/18 10:40 Glucose 148 mg/dL (70-105) H 08/30/18 01:22 279 (280-300) L 08/29/18 10:40 46 mg/L (Less than 10) H 08/30/18 14:31 Consult Discharge Plan - Plan Referrals: Braxton Espinosa MD [Partnered Physician] - 09/17/18 4:15 pm <PeggyLainesandra - Last Filed: 08/31/18 18:21> Date of Encounter: 08/31/18 Assessment and Plan (1) Dizziness Current Visit: Yes Status: Acute Objective - Constitutional Vitals: Temp Pulse Resp BP Pulse Ox 100.9 F H 74 16 93/56 95 08/31/18 18:18 08/31/18 15:10 08/31/18 15:10 08/31/18 15:10 08/31/18 15:10 Results - Laboratory Findings CBC and BMP: 08/31/18 02:03 08/31/18 02:03 Abnormal lab findings: Abnormal lab results MCH 27.9 pg (28.0-33.3) L 08/31/18 02:03 1.5 K/mcL (0.0-1.3) H 08/29/18 10:40 ESR 32 mm/hr (0-10) H 08/30/18 14:31 Sodium 135 mEq/L (136-145) L 08/30/18 01:22 Carbon Dioxide 22 mEq/L (23-29) L 08/29/18 10:40 Glucose 148 mg/dL (70-105) H 08/30/18 01:22 279 (280-300) L 08/29/18 10:40 46 mg/L (Less than 10) H 08/30/18 14:31
[2018-08-31 12:00] LABS: Albumin 3.7 g/dL (3.5-5.7); Albumin/Globulin Ratio 1.4 (1.1-2.2); Bilirubin,Direct 0.1 mg/dL (0.0-0.2); Bilirubin,Indirect 0.2 mg/dL (0.0-1.2); Bilirubin,Total 0.3 mg/dL (0.3-1.0); Globulin 2.7 g/dL (2.4-3.5); Total Protein 6.4 g/dL (6.4-8.9)
--- NOTE | 2018-08-31 13:51 | Internal Med Progress Note ---
Hospitalist Progress Note - Encounter Date of Encounter: 08/31/18 Time of Encounter: 10:00 - Subjective Interval History: Patient was seen and examined at bedside I did review results of cardiac echo as well as lab work. Patient states that [place] has been in the [place] and that he has eaten wild mushrooms, he also is concerned that he may have been explained to Legionnaires' disease. Denies any cough or respiratory issues. Continues to experience intermittent fevers. Discussed with patient and will consult infectious disease. - Exam Vitals: Temp Pulse Resp BP Pulse Ox 97.8 F 59 18 116/63 97 08/31/18 11:15 08/31/18 11:15 08/31/18 11:15 08/31/18 11:15 08/31/18 11:15 Exam: Skin: Free of rash and discoloration.Warm and moist Eyes: Sclera is white. There is no discharge from eyes. ENMT: Oral/pharyngeal mucosa is normal in appearance. There is no discharge from nose or ears. Respiratory: Normal breath sounds with no crackles and wheezes bilaterally. CV: Heart is regular with no gallop , 3/6 ystolic murmur GI: Abdomen is flat and soft with no palpable mass or visceromegaly. : There is no tenderness in patient's flanks bilaterally. Neuro exam: He has good strength in upper and lower extremities. He has normal eye movements. Psychiatric: He has normal affect. His thought process is appropriate to the situation. - Assessment and Plan (1) Dizziness Current Visit: Yes Status: Acute Assessment and Plan: Pt presents with dizziness of 6 weeks duration, new murmur and fevers of 3 days duration Unclear etiology. MRI and CT negative for stroke Differentials include vertigo vs query infective endocarditis vs valvular heart disease such as aortic stenosis causing dizziness Will obtain cultures. Start emprically on vanc and ceftriaxone in light of fever and new murmur. (Has no classic risk factor for IE but has unexplained fevers) Obtain 2D echo. D/c antibiotics if blood cultures and echo show no sign of infection Will give IV fluids and meclizine PRN. Neurology consulted and appreciate recs- cervical MRI - Impression 1. Motion degrades images limiting evaluation. 2. Minimal spinal canal stenosis at C5-C6 and C6-C7. 3. Neural foraminal narrowing at C4-C5 through C6-C7 as above. 4. Straightening of the normal cervical lordosis without evidence of spondylolisthesis. (2) Subacute endocarditis Current Visit: Yes Status: Acute Assessment and Plan: See #1. continue antibiotics. Obtain blood cultures- pending 2D echo Impressions: LVEF 55%. Mildly dilated left ventricle. Moderate left ventricular diastolic dysfunction. Normal right ventricular structure and function. Mild aortic stenosis. Mean gradient 17 mmHg. Moderate aortic regurgitation. No evidence of pulmonary hypertension. (3) DVT prophylaxis Current Visit: Yes Status: Acute Assessment and Plan: heparin sc (4) Fever of unknown origin Current Visit: Yes Status: Acute Assessment and Plan: Patient has been experiencing and her [place] fevers temperatures around 99 to 101 Fahrenheit since . Denies any abdominal pain nausea vomiting or diarrhea no cough wheezing or congestion. Does admit to dizziness/lightheadedness and bilateral arm paresthesia complains of general malaise and profuse diaphoresis Denies any recent travel [place]. Patient does state that he has recently consumed wild mushrooms, he has also been in [place]. Reviewed patient's body with no rash or lesions noted. No bug bites noted Respiratory infectious panel is negative No leukocytosis ESR and C-reactive protein slightly elevated Urinalysis unremarkable Chest x-ray with nothing acute Legionella antigen pending Lyme disease antigen pending Consulted infectious disease appreciate recommendations - Time Spent with Patient Total time spent is greater than 50% in coordination of care (as documented) at patient's floor/unit and/or counseling patient: Internal Medicine: Result - Labs CBC & Chem 7: 08/31/18 02:03 08/31/18 02:03 Labs: Short CBC 08/31/18 Range/Units 02:03 WBC 7.0 (4.3-11.1) K/mcL Hgb 13.4 (12.9-16.9) g/dL Hct 41.5 (37.5-50.1) % Plt Count 144 (140-400) K/mcL Neutrophils # 3.6 (1.6-8.9) K/mcL BMP 08/31/18 02:03 Sodium 137 Potassium 4.5 Chloride 105 Carbon Dioxide 25 BUN 10 Creatinine 1.09 Glucose 93 Calcium 8.6 Liver Function 08/31/18 Range/Units 11:21 Total Bilirubin 0.3 (0.3-1.0) mg/dL Direct Bilirubin 0.1 (0.0-0.2) mg/dL AST 35 (13-39) Units/L ALT 46 (7-52) Units/L Alkaline Phosphatase 69 (34-104) Units/L Albumin 3.7 (3.5-5.7) g/dL Urine 08/30/18 Range/Units 21:23 Urine Color Yellow (Yellow) Urine Clarity Clear (Clear) Urine pH 6.0 (5.0-8.0) pH Units Ur Specific [place] 1.016 (1.010-1.025) Urine Protein Negative (Neg-Trace) mg/dL Urine Glucose (UA) Normal (Normal) mg/dL - Impressions Impressions Neck CTA 08/29/18 11:04 IMPRESSION: Unremarkable CTA of the head and neck. D/ / Karl Rodriguez MD / Karl Rodriguez MD Interpreting Provider: Karl Rodriguez MD Head CTA 08/29/18 11:19 IMPRESSION: Unremarkable CTA of the head and neck. D/ / Karl Rodriguez MD / Karl Rodriguez MD Interpreting Provider: Karl Rodriguez MD Chest X-Ray 08/31/18 08:37 IMPRESSION: No evidence of acute cardiopulmonary disease. No evidence of pneumonia. D/ / James Buckley MD / James Buckley MD Interpreting Provider: James Buckley MD Cervical Spine MRI 08/31/18 11:10 IMPRESSION: 1. Motion degrades images limiting evaluation. 2. Minimal spinal canal stenosis at C5-C6 and C6-C7. 3. Neural foraminal narrowing at C4-C5 through C6-C7 as above. 4. Straightening of the normal cervical lordosis without evidence of spondylolisthesis. D/ / Zelalem Bishop MD / Zelalem Bishop MD Interpreting Provider: Zelalem Bishop MD Consult Discharge Plan - Plan Referrals: Braxton Espinosa MD [Partnered Physician] - 09/17/18 4:15 pm (2) Subacute endocarditis Qualifiers: Endocarditis type: unspecified Qualified Code(s): I33.9 - Acute and subacute endocarditis, unspecified
--- NOTE | 2018-08-31 15:54 | Infectious Disease Consult ---
Infectious Disease-Consult - Encounter Date/Time Date of Encounter: 08/31/18 Time of Encounter: 15:50 - Data of Consult Reason for consult: Fever of unknown origin Consult date: 08/31/18 Requesting Physician: Ellen Mars Primary Care Provider: PCP NONE - HPI HPI: patient is a 63 year old who presented to [facility] on 08/29 with dizziness and shortness of breath and fevers, we are consulted on 08/31 for FUO. Patient is a 61-year-old gentleman with past medical history significant for asthma, hyperlipidemia and osteoarthritis and history of kidney stones presented to [facility] with complaints of dizziness for about 6 weeks prior to admission. Patient describes the dizziness as lightheadedness not vertigo. Patient denied any tinnitus. Patient denied any fevers or chills. No night sweats. No weight loss or weight gain. No sinusitis no URI symptoms no runny nose. No earache or discharge. Patient said dizziness happened anytime the day. Not associated with activities or lack of. The prior to admission patient having worsening dizziness fevers chills night sweats and feeling more dizziness. Patient called me recently he has been feeling more short of breath and having more dyspnea on exertion. He attributed that to his asthma. Since admission, patient has been having fever as high as 101.2 Fahrenheit, no tachycardia and no tachypnea. Presenting labs revealed loosening of 8.3 with normal differential. Neutrophils 60% leukocytosis 20% monocytes 18%. BUN 13 creatinine 1.15 LFTs within normal limit. CRP 46 ESR 32. Urinalysis was done which came back negative. Patient had upper respiratory infection panel done which came back negative. Blood cultures 2/2 sets obtained and are negative. Patient had multiple imaging done. MRI of the cervical spine with no active infection, chest x-ray no evidence of acute cardiopulmonary disease no evidence of pneumonia, head and neck CT was unremarkable patient was started on vancomycin and Rocephin. We were asked to evaluate the patient's make further recommendations. On further questioning patient lives at home with his no children and grand children at home. [place]. He has 2 cats and a dog inside. No poultry no pigeons no check his no goats no other animals outside. Patient has had multiple tick exposures but he said every time he goes outside he comes in and he takes a shower and he his checks important takes. 3 weeks prior to admission he had noted to takes crawling up his leg but they were not engorged. Patient denied any rash, no joint pain or effusion or any other symptoms. Patient has served in the and has served in [employer]. His been to [place] and [place]. No recent travel history. He has been to [place] in 2003. Patient antibiotic allergies include sulfa. Apparently his mom told him when he was a baby had an allergic reaction to it. Currently patient works at [employer]. Currently patient laying in bed appears comfortable no acute distress he is a little flushed. I asked his and she told me that that is not his normal color is more red than usual. Patient apparently has not had a bowel movement since . Rest of the review of systems is really unremarkable. - ROS Review of Systems: 10 point review of systems done, negative other for what is mentioned in history of present illness - Results CBC & Chem 7: 08/31/18 02:03 08/31/18 02:03 - Exam Vitals: Temp Pulse Resp BP Pulse Ox 98.9 F 74 16 93/56 95 08/31/18 15:10 08/31/18 15:10 08/31/18 15:10 08/31/18 15:10 08/31/18 15:10 Exam: HEAD: Normocephalic atraumatic EYES: PERRLA, EOMI, no conjunctival hemorrhage, sclera anicteric ENT: Mucous membranes moist, no oral thrush. Patient has partial dentures and the top which does not look bad NECK: Supple. No meningeal signs. No masses LUNGS: Chest expanding symmetrically. Lungs sounds audible both lung peñaloza. No wheezing, no rhonchi CV: RRR, S1S2, ABDOMEN: Soft, nontender, nondistended. Bowel sounds audible BACK: No CVA tenderness. Normal inspection. No tenderness over the spine EXTREMITY: Adequate perfusion. No joint effusion. SKIN: Normal color. No rash. NEURO: Awake alert oriented 3. No obvious focal deficit PSYCH: Calm and appropriate. No agitation. Loratadine [Claritin] 10 mg PO DAILY 11/17/15 [History] Pravastatin Sodium [Pravachol] 40 mg PO DAILY 11/17/15 [History] Ranitidine HCl [Heartburn Relief] 150 mg PO DAILY 11/17/15 [History] Albuterol Sulfate [Albuterol Inhaler] 2 puff PO Q4-6H PRN 08/29/18 [History] Ezetimibe 10 mg PO DAILY 08/29/18 [History] Fluticasone Propionate Nasal [Flonase] 50 mcg NS DAILY 08/29/18 [History] Glucosamine Sulfate Dipot Chlr [Glucosamine] 1,000 mg PO DAILY 08/29/18 [History] Ipratropium/Albuterol Sulfate [Iprat-Albut 0.5-3(2.5) mg/3 ml] 3 mg PO BID PRN 08/29/18 [History] [place]inthrop-3 Fatty Acids [Fish Oil] 300 mg PO DAILY 08/29/18 [History] Allergy/AdvReac Type Severity Reaction Status Date / Time Sulfa (Sulfonamide Allergy See Verified 08/29/18 10:30 Antibiotics) Comments atorvastatin [From Lipitor] AdvReac Joint Pain Verified 08/29/18 10:30 rosuvastatin [From Crestor] AdvReac Joint Pain Verified 08/29/18 10:30 - Assessment and Plan (1) Fever of unknown origin Current Visit: Yes Status: Acute Etiology not clear. Infectious versus inflammatory versus malignancy? Patient denies history of autoimmune disease or vasculitis; his father though was diagnosed with throat cancer at age 62 So far workup is nonrevealing. Normal WBC with normal neutrophil count no bands, normal LFTs, normal urine, negative blood culture, ESR/CRP are 32/46 respectively, respiratory infectious panel within normal limits. Imaging including chest x-ray, head and neck CTA and cervical spine MRI all with in normal limit 2-D echo negative for endocarditis At this point and will have an obvious source of infection and I do not have an obvious or index of suspicion for bacterial infection On my differential which is a little bit concerning is the lack of bowel movement for 4 days (obstruction/ileus?) Also the fact that on the differential there is high monocytosis at 18%. Tickborne illness is not on my differential because there is no thrombocytopenia and no elevated LFTs and no rash and no obvious clinical picture I will check the following: Pro-calcitonin NOVA and rheumatoid factor CT chest abdomen and pelvis with IV and oral contrast Peripheral smear Stop all antibiotics and observe to see if an infection reveals itself somewhere Await cultures to finalize Time spent with the family and patient 80 minutes SNOMED Code(s): 3799127 (2) Constipation Current Visit: Yes Status: Acute Patient has not had a bowel movement since His abdominal physical exam shows no guarding, negative Rodrigez sign, no peritoneal signs no rebound. Qualifiers: Constipation type: unspecified constipation type Qualified Code(s): K59.00 - Constipation, unspecified SNOMED Code(s): 11720624 (3) Dizziness Current Visit: Yes Status: Acute Etiology not clear All workup has been negative by neurology including an MRI, CTA of the head and neck SNOMED Code(s): 920463230, 149615634 (4) Heart murmur, systolic Current Visit: Yes Status: Acute SNOMED Code(s): 77103056 (5) Asthma Current Visit: Yes Status: Acute Qualifiers: Asthma severity: unspecified severity Asthma persistence: unspecified Asthma complication type: unspecified Qualified Code(s): J45.909 - Unspecified asthma, uncomplicated SNOMED Code(s): 274723836 (6) Allergy to sulfa drugs Current Visit: Yes Status: Acute was told he was allergic as a baby SNOMED Code(s): 07274528 Past Med Surg Social Fam HX - Past Medical History Medical history: asthma, hyperlipidemia, kidney stones Additional medical history: hiatal hernia, Psychiatric history: no psych history - Past Surgical History Surgical History: herniorrhaphy Additional surgical history: lithotripsy, right knee scope, - Social History Smoking Status: Never smoker Smokeless Tobacco Status: No Alcohol use: occasionally Drug use: none - Family History Mother Age: 89 Living Status: Still Living Hx Family Cardiac Disorders: Yes (murmur) Hx Family Neurologic Disorders: Yes (CVA) Consult Discharge Plan - Plan Referrals: Braxton Espinosa MD [Partnered Physician] - 09/17/18 4:15 pm
[2018-08-31] MEDS ORDERED: Isovue-370 500 ML BOTTLE IVP ONE ×2 (17:51)
--- NOTE | 2018-08-31 23:07 | Event Note ---
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 He is not having abdominal pain or nausea. He does complain of constipation. He is non-tender on abdominal palpation. I held patient's subcutaneous heparin, and I started him on low dose IV heparin drip.
[2018-09-01 00:25] LABS: Basophils # 0.1 K/mcL (0.0-0.2); Basophils % 0.9 %; Eosinophils # 0.2 K/mcL (0.0-0.6); Eosinophils % 3.8 %; Hematocrit 38.9 % (37.5-50.1); Hemoglobin 12.7 g/dL (12.9-16.9); Immature Granulocytes % 0.3 % (0-4); Lymphocytes % 32.2 %; Mean Corpuscular HGB Conc 32.6 g/dL (31.6-35.5); Mean Corpuscular Volume 85.7 fL (83.0-100.0); Mean Platelet Volume 11.6 fL (9.4-12.4); Monocytes # 1.3 K/mcL (0.0-1.3); Monocytes % 20.8 %; Neutrophils # 2.7 K/mcL (1.6-8.9); Platelet Count 149 K/mcL (140-400); Red Blood Count 4.54 M/mcL (4.19-5.50); Red Cell Distribution Width 13.8 % (11.5-14.5)
[2018-09-01] MEDS: Heparin 25,000 UNIT/250 ML D5W 25,000 UNIT/250 ML IV.SOLN IVC SCH (00:34)
[2018-09-01 00:36] LABS: Heparin anti-factor XA UFH 0.04 IU/mL (0.30-0.70); Prothrombin Time 11.8 Seconds (9.4-12.1)
[2018-09-01 00:44] LABS: BUN/Creatinine Ratio 10 (6-26); Blood Urea Nitrogen 9 mg/dL (8-23); Calcium 8.5 mg/dL (8.6-10.3); Carbon Dioxide 24 mEq/L (23-29); Chloride 109 mEq/L (98-107); Glucose 112 mg/dL (70-105); Osmolality,Calculated 279 (280-300); Platelet Estimate Normal (Normal); Potassium 4.1 mEq/L (3.5-5.1); Sodium 135 mEq/L (136-145); eGFR For Non-African Americans > 60 (> 60)
[2018-09-01] MEDS: Acetaminophen 325 MG TABLET PO PRN ×2 (04:56→23:36)
[2018-09-01] MEDS: 0.9 % Sodium Chloride 1,000 ML IVC SCH ×2 (06:59→18:33)
[2018-09-01] MEDS: (Omega-3 Fatty Acids [Fish Oil] 300 MG) PO SCH (09:47)
[2018-09-01] MEDS: (Ezetimibe 10 MG) PO SCH (09:51)
[2018-09-01] MEDS: Famotidine 20 MG TABLET PO SCH (09:56)
[2018-09-01] MEDS: Loratadine 10 MG TABLET PO SCH (09:56)
--- NOTE | 2018-09-01 10:49 | Neurology Progress Note ---
Date of Encounter: 09/01/18 Time of Encounter: 10:49 Assessment and Plan (1) Dizziness Current Visit: Yes Status: Acute Neuro seen in follow-up for evaluation of dizziness/lightheadedness and bilateral arm paresthesias. Clinically, the patient remains stable without any new neurological deficits. His neurological exam continues to be nonfocal. CT head and neck unremarkable. Neuroimaging of the C-spine shows minimal spinal canal stenosis at C5-6 and C6-7. There is neural foraminal narrowing at C4-5 through C6-7. At this time we have no explanation for lightheadedness, arm parasthesias, night sweats and fevers. In the absence of leukocytosis, and meningeal signs these are most likely not neurological in origin. ID following; recommendations appreciated. Infectious disease recommended stopping antibiotics to see if an infection reveals itself. NOVA and rheumatoid factor ordered. Subjective Principal diagnosis: Dizziness, bilateral arm paresthesias Interval history: Patient seen in follow-up for dizziness and bilateral arm paresthesias. This morning he reports his dizziness has subsided. However, he still having some lightheadedness which is most notably occurring with excessive head movement. This morning he is denying paresthesias of the arms. His main concern at this time is in regards to his night sweats and fevers. Objective - Constitutional Vitals: Temp Pulse Resp BP Pulse Ox 98.4 F 60 18 111/64 96 09/01/18 07:15 09/01/18 07:15 09/01/18 07:15 09/01/18 07:15 09/01/18 07:15 Exam: Examination: General Examination: *CONSTITUTIONAL: Alert and oriented x3, no acute distress *GENERAL APPEARANCE OF PATIENT appears healthy and well groomed *EYES: pupils equal, round, reactive to light and accommodation, conjunctiva clear *CARDIOVASCULAR no peripheral edema, distal temperature normal, dorsalis pedis pulses normal. See vital signs Musculoskeletal: *GAIT AND STATION normal, with normal Romberg testing, no abnormalities such as broad base gait or spasticity *ASSESSMENT OF MUSCLE STRENGTH IN THE UPPER AND LOWER EXTREMITIES bilateral deltoid, bicep, tricep, care transition mgr strength, hip flexors ,anterior tibialis, dorsoflexion of the foot 5/5 *MUSCLE TONE IN THE UPPER AND LOWER EXTREMITIES normal. No abnormal movements, fasciculations or atrophy identified. Neurological: *ORIENTATION to person, situation, time and place *RECURRENT AND REMOTE MEMORY intact *ATTENTION AND CONCENTRATION are normal *LANGUAGE FUNCTION no significant aphasia or dysarthia was noted. *FUND OF KNOWLEDGE aware of current events, past history, vocabulary *MENTAL attention span and concentration normal. *CN II optic fundi were normal, no papilledema noted. *CN III,IV, PERRLA extraocular eye movements were full, no nystagmus and no ptosis noted. *CN V shows normal sensation and jaw opens symmetrically. *CN VII shows normal facial movement symmetrically, upper and lower bilaterally. *CN VIII shows no significant hearing loss on exam *CN IX,,X palate elevated symmetrically *CN XI normal strength in the sternocleidomastoid muscles, symmetrical shoulder shrugging. *CN XII tongue protruded in the midline, with normal strength and movement. *SENSORY EXAMINATION light touch intact *REFLEXES: deep tendon reflexes were symmetrically diminished diffusely, no pathological reflexes were noted. *CEREBELLAR TESTING normal finger to nose, heel/knee/stokes *PAIN LEVEL 0/10 - Neurological Exam Sensorimotor examination: Present: intact Motor Examination: Present: grossly full strength in all extremities Motor examination - left side: 5/5: deltoids, biceps, triceps, wrist flexion, wrist extension, hip flexors, care transition mgr, quadriceps, tibialis Anterior, toe extension (EHL), plantarflexion Sensation intact: Present: intact Posture: Present: other (None) Reflex and gait examination: other (Gait is slightly unsteady but able to correct posture and turn. No ataxic gait, no spastic gait) Mental Status Examination: Present: awake, alert, oriented to person, oriented to place, oriented to time, follows commands appropriately, answers questions appropriately, no agnosia, no aphasia, no aproxia Cranial nerve examination: Present: PERRL, EOMI, visual peñaloza intact, corneal reflexes brisk symmetrically, sensory to face intact, mastication intact, no facial asymmetry is present, no dysarthria, hearing is intact symmetrically, soft palate elevates bilaterally upon phonation, gag reflex intact, flexes SCM and trapezius muscles symmetrically with full power, tongue protrudes midline, no atrophy or facial fasiculations present Results - Laboratory Findings CBC and BMP: 09/01/18 00:16 09/01/18 00:16 Abnormal lab findings: Abnormal lab results Hgb 12.7 g/dL (12.9-16.9) L 09/01/18 00:16 MCH 27.9 pg (28.0-33.3) L 08/31/18 02:03 1.5 K/mcL (0.0-1.3) H 08/29/18 10:40 ESR 32 mm/hr (0-10) H 08/30/18 14:31 Heparin Anti-Xa, Unfract 0.04 IU/mL (0.30-0.70) L 09/01/18 00:16 Sodium 135 mEq/L (136-145) L 09/01/18 00:16 Chloride 109 mEq/L (98-107) H 09/01/18 00:16 Carbon Dioxide 22 mEq/L (23-29) L 08/29/18 10:40 Glucose 112 mg/dL (70-105) H 09/01/18 00:16 279 (280-300) L 09/01/18 00:16 Calcium 8.5 mg/dL (8.6-10.3) L 09/01/18 00:16 46 mg/L (Less than 10) H 08/30/18 14:31 0.44 ng/mL (0.00-0.15) H 08/31/18 18:08 Consult Discharge Plan - Plan Referrals: Braxton Espinosa MD [Partnered Physician] - 09/17/18 4:15 pm
--- NOTE | 2018-09-01 12:38 | Internal Med Progress Note ---
Hospitalist Progress Note - Encounter Date of Encounter: 09/01/18 Time of Encounter: 12:24 - Subjective Interval History: Was seen and examined at bedside patient will had been incubating in the hallways without any difficulty. He did have a bowel movement overnight. I did discuss with the patient and his CT results of abdomen and that hematology would be consult. I also discussed findings with surgery Dr. Courtney advised no surgical intervention at this time and continue with current treatment plan. Updated patient with this discussion verbalized understanding. - Exam Vitals: Temp Pulse Resp BP Pulse Ox 98.7 F 61 18 111/67 96 09/01/18 11:02 09/01/18 11:02 09/01/18 11:02 09/01/18 11:02 09/01/18 11:02 Exam: Skin: Free of rash and discoloration.Warm and moist Eyes: Sclera is white. There is no discharge from eyes. ENMT: Oral/pharyngeal mucosa is normal in appearance. There is no discharge from nose or ears. Respiratory: Normal breath sounds with no crackles and wheezes bilaterally. CV: Heart is regular with no gallop , 3/6 ystolic murmur GI: Abdomen is flat and soft with no palpable mass or visceromegaly. : There is no tenderness in patient's flanks bilaterally. Neuro exam: He has good strength in upper and lower extremities. He has normal eye movements. Psychiatric: He has normal affect. His thought process is appropriate to the situation. - Assessment and Plan (1) Dizziness Current Visit: Yes Status: Acute Assessment and Plan: Pt presents with dizziness of 6 weeks duration, new murmur and fevers of 3 days duration Unclear etiology. MRI and CT negative for stroke Differentials include vertigo vs query infective endocarditis vs valvular heart disease such as aortic stenosis causing dizziness Will obtain cultures. Start emprically on vanc and ceftriaxone in light of fever and new murmur. (Has no classic risk factor for IE but has unexplained fevers) Obtain 2D echo. D/c antibiotics if blood cultures and echo show no sign of infection Will give IV fluids and meclizine PRN. Neurology consulted and appreciate recs- cervical MRI - Impression 1. Motion degrades images limiting evaluation. 2. Minimal spinal canal stenosis at C5-C6 and C6-C7. 3. Neural foraminal narrowing at C4-C5 through C6-C7 as above. 4. Straightening of the normal cervical lordosis without evidence of spondylolisthesis. 09/01 Dizziness has subsided however does experience lightheadedness when moving his head excessively. Denies any paresthesias in his arm easement angulating in the moran without any difficulties no focal deficits noted Neurology consult and appreciate recommendations-do not suspect ROLL TENSION TESTER infection (2) Subacute endocarditis Current Visit: Yes Status: Acute Assessment and Plan: See #1. continue antibiotics. Obtain blood cultures- pending 2D echo Impressions: LVEF 55%. Mildly dilated left ventricle. Moderate left ventricular diastolic dysfunction. Normal right ventricular structure and function. Mild aortic stenosis. Mean gradient 17 mmHg. Moderate aortic regurgitation. No evidence of pulmonary hypertension. Patient will need to follow-up with cardiology as outpatient to monitor regurgitation as outpatient (3) DVT prophylaxis Current Visit: Yes Status: Acute Assessment and Plan: heparin sc (4) Fever of unknown origin Current Visit: Yes Status: Acute Assessment and Plan: Patient has been experiencing and her Nugent fevers temperatures around 99 to 101 Fahrenheit since . Denies any abdominal pain nausea vomiting or diarrhea no cough wheezing or congestion. Does admit to dizziness/lightheadedness and bilateral arm paresthesia complains of general malaise and profuse diaphoresis Denies any recent travel [facility]. Patient does state that he has recently consumed wild mushrooms, he has also been in the [place]. Reviewed patient's body with no rash or lesions noted. No bug bites noted Respiratory infectious panel is negative No leukocytosis ESR and C-reactive protein slightly elevated Urinalysis unremarkable Chest x-ray with nothing acute Legionella antigen pending Lyme disease antigen pending Consulted infectious disease appreciate recommendations CT of abdomen/pelvis IMPRESSION: 1. Fat attenuating lesion within the left paracentral the pelvis with minimal adjacent inflammation favors fat necrosis rather than omental infarct or epiploic appendagitis. 2. 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 3. Trace left pleural effusion. 4. Mesenteric adenopathy, likely reactive. 5. Age-indeterminate L3 compression fracture, likely old. If there is point tenderness, recommend nonemergent MRI of the lumbar spine. CT chest with contrast IMPRESSION: 1. Fat attenuating lesion within the left paracentral the pelvis with minimal adjacent inflammation favors fat necrosis rather than omental infarct or epiploic appendagitis. 2. 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 3. Trace left pleural effusion. 4. Mesenteric adenopathy, likely reactive. 5. Age-indeterminate L3 compression fracture, likely old. If there is point tenderness, recommend nonemergent MRI of the lumbar spine. (5) Mesenteric vein thrombosis Current Visit: Yes Status: Acute Assessment and Plan: No abdominal pain-abdominal aaseesment is benign-she did have a bowel movement after receiving Colace states that he had not had a bowel movement since last CT of Abd IMPRESSION: 1. Fat attenuating lesion within the left paracentral the pelvis with minimal adjacent inflammation favors fat necrosis rather than omental infarct or epiploic appendagitis. 2. 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 3. Trace left pleural effusion. 4. Mesenteric adenopathy, likely reactive. 5. Age-indeterminate L3 compression fracture, likely old. If there is point tenderness, recommend nonemergent MRI of the lumbar spine. -Discussed with surgery Dr. Courtney- no surgical intervention at this time continue with current treatment heparin IV We will consult hematology appreciate recommendations - Time Spent with Patient Total time spent is greater than 50% in coordination of care (as documented) at patient's floor/unit and/or counseling patient: Internal Medicine: Result - Labs CBC & Chem 7: 09/01/18 00:16 09/01/18 00:16 Labs: Short CBC 09/01/18 Range/Units 00:16 WBC 6.3 (4.3-11.1) K/mcL Hgb 12.7 L (12.9-16.9) g/dL Hct 38.9 (37.5-50.1) % Plt Count 149 (140-400) K/mcL Neutrophils # 2.7 (1.6-8.9) K/mcL BMP 09/01/18 00:16 Sodium 135 L Potassium 4.1 Chloride 109 H Carbon Dioxide 24 BUN 9 Creatinine 0.90 Glucose 112 H Calcium 8.5 L - ABG Interpretation ABG results: PT/INR, D-dimer PT 11.8 Seconds (9.4-12.1) 09/01/18 00:16 - Impressions Impressions Abdomen/Pelvis CT 08/31/18 20:00 IMPRESSION: 1. Fat attenuating lesion within the left paracentral the pelvis with minimal adjacent inflammation favors fat necrosis rather than omental infarct or epiploic appendagitis. 2. 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 3. Trace left pleural effusion. 4. Mesenteric adenopathy, likely reactive. 5. Age-indeterminate L3 compression fracture, likely old. If there is point tenderness, recommend nonemergent MRI of the lumbar spine. D/ / Ki Robbins MD / Ki Robbins MD Interpreting Provider: Ki Robbins MD Chest CT 08/31/18 20:00 IMPRESSION: 1. Fat attenuating lesion within the left paracentral the pelvis with minimal adjacent inflammation favors fat necrosis rather than omental infarct or epiploic appendagitis. 2. 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 3. Trace left pleural effusion. 4. Mesenteric adenopathy, likely reactive. 5. Age-indeterminate L3 compression fracture, likely old. If there is point tenderness, recommend nonemergent MRI of the lumbar spine. D/ / Ki Robbins MD / Ki Robbins MD Interpreting Provider: Ki Robbins MD Consult Discharge Plan - Plan Referrals: Braxton Espinosa MD [Partnered Physician] - 09/17/18 4:15 pm (2) Subacute endocarditis Qualifiers: Endocarditis type: unspecified Qualified Code(s): I33.9 - Acute and subacute endocarditis, unspecified
[2018-09-01] MEDS ORDERED: Aminoglycoside Consult 1 EACH MC ONE (15:17)
--- NOTE | 2018-09-01 15:33 | Oncology Inp Consult Note ---
<Leah Perez L - Last Filed: 09/01/18 18:48> Date of Encounter: 09/01/18 Time of Encounter: 14:45 Assessment and Plan (1) Mesenteric vein thrombosis Status: Acute Assessment and plan: Etiology unclear He does have history of provoked DVT x1 ~20 years ago following knee surgery Surgery recommends continued non surgical management, he is without abdominal symptoms Plan: Currently on heparin gtt Discussed need for AC at discharge- we will grimes check Xarelto (FYI-patient states that no matter what the grimes of Xarelto may be he will refuse to take coumadin due to "bad family experiences") Duration TBD-typically recommend 3-6 months of anticoagulation for mesenteric vein thrombosis however since this is patients second clot and given it's rare location may recommend indefinite anticoagulation, will discuss with Dr. Lara Thrombophilia workup ordered for AM (2) Fever of unknown origin Status: Acute Assessment and plan: Etiology unclear Appreciate ID recommendations CBC appears benign, no evidence of malignant findings noted on imaging Blood smear pending Neuro recommending LP - Data of Consult Requesting Physician: Ellen Mars Primary Care Provider: PCP NONE - Consult Narrative Reason for consult: Mesenteric vein thrombosis History of present illness: Mr. Haskins is a 61 year old male with past medical history significant for asthma, hyperlipidemia and osteoarthritis and history of kidney stones. He presented to [facility] for dizziness x6 weeks, fevers, chills and night sweats. Since admission he has had fevers as high as 101.2F. ID has been consulted to assist in evaluation for source of infection. Etiology at this time remains elusive. He did report constipation and CT chest/abdomen/pelvis was obtained which revealed: 1.Fat attenuating lesion within the left paracentral the pelvis with minimal adjacent inflammation favors fat necrosis rather than omental infarct or epiploic appendagitis. 2. 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 3. Trace left pleural effusion. 4. Mesenteric adenopathy, likely reactive. 5. Age-indeterminate L3 compression fracture, likely old. If there is point tenderness, recommend nonemergent MRI of the lumbar spine. We have been consulted for further recommendations. He is currently on a heparin gtt. He is without abdominal pain or s/s acute abdomen. Surgery was consulted and recommends non surgical management. Patient states he has a history of RLE DVT, provoked following right knee surgery about 20 years ago. No other family history of blood clots. No personal history of cancer. Family history is positive for his father who was diagnosed with throat cancer around the age of 63. He denies unintended weight loss, dysphagia, odynophagia, headache, SOB, Chest pain, abdominal pain, nausea, vomiting, diarrhea, bowel or urinary comp laint. He feels generally weak. TMAX 100.9 in past 24 hours. Continues to experience intermittent dizziness. Drinks alcohol occasionally. Never smoker. Past Med Surg Social Fam HX - Past Medical History Medical history: asthma, hyperlipidemia, kidney stones Additional medical history: hiatal hernia, Psychiatric history: no psych history - Past Surgical History Surgical History: herniorrhaphy Additional surgical history: lithotripsy, right knee scope, - Social History Smoking Status: Never smoker Smokeless Tobacco Status: No Alcohol use: occasionally Drug use: none - Family History Mother Age: 89 Living Status: Still Living Hx Family Cardiac Disorders: Yes (murmur) Hx Family Neurologic Disorders: Yes (CVA) Medications and Allergies Loratadine [Claritin] 10 mg PO DAILY 11/17/15 [History] Pravastatin Sodium [Pravachol] 40 mg PO DAILY 11/17/15 [History] Ranitidine HCl [Heartburn Relief] 150 mg PO DAILY 11/17/15 [History] Albuterol Sulfate [Albuterol Inhaler] 2 puff PO Q4-6H PRN 08/29/18 [History] Ezetimibe 10 mg PO DAILY 08/29/18 [History] Fluticasone Propionate Nasal [Flonase] 50 mcg NS DAILY 08/29/18 [History] Glucosamine Sulfate Dipot Chlr [Glucosamine] 1,000 mg PO DAILY 08/29/18 [History] Ipratropium/Albuterol Sulfate [Iprat-Albut 0.5-3(2.5) mg/3 ml] 3 mg PO BID PRN 08/29/18 [History] [place]-3 Fatty Acids [Fish Oil] 300 mg PO DAILY 08/29/18 [History] Allergy/AdvReac Type Severity Reaction Status Date / Time Sulfa (Sulfonamide Allergy See Verified 08/29/18 10:30 Antibiotics) Comments atorvastatin [From Lipitor] AdvReac Joint Pain Verified 08/29/18 10:30 rosuvastatin [From Crestor] AdvReac Joint Pain Verified 08/29/18 10:30 Constitutional: Present: chills, fatigue, fever(s), night sweats. Absent: anorexia, weight loss Eyes: Absent: change in vision Nose, mouth and throat: Absent: dysphagia, odynophagia Cardiovascular: Absent: chest pain Respiratory: Absent: cough, dyspnea Gastrointestinal: Absent: abdominal pain, hematochezia, melena, nausea, vomiting Genitourinary: Absent: dysuria Musculoskeletal: Present: muscle weakness Integumentary: Absent: rash, wounds Neurological: Absent: confusion, focal weakness Hematologic/Lymphatic: Present: as per HPI Oncology - Exam - Constitutional General appearance: cooperative, no acute distress, no febrile - Head Head exam: Present: atraumatic - ENT ENT exam: Present: mucous membranes moist, normal oropharynx - Respiratory Respiratory exam: Present: CTAB. Absent: respiratory distress - Cardiovascular Cardiovascular exam: Present: systolic murmur - GI/Abdominal GI/Abdominal exam: Present: normal bowel sounds, soft. Absent: guarding, rebound, tenderness - Extremities Exam Extremities exam: Present: normal inspection. Absent: calf tenderness - Neurological Exam Neurological exam: Present: alert, oriented X3, no focal deficits, strengths equal and symetr throughout - Psychiatric Psychiatric exam: Present: normal affect, normal mood - Skin Skin exam: Present: dry, intact, normal color, warm Consult Discharge Plan - Plan Referrals: Braxton Espinosa MD [Partnered Physician] - 09/17/18 4:15 pm Inpatient Charges Provider: Dr. Keagan Lara <Mai Lara S - Last Filed: 09/01/18 19:11> Date of Encounter: 09/01/18 - Data of Consult Requesting Physician: Ellen Mars Primary Care Provider: PCP NONE Inpatient Charges Provider: Dr. Keagan Lara Consult - Inpatient: [id number] - Attending Attestation I examined this patient and my medical decision-making was reviewed with the Advanced Practice Nurse. I agree with the documented findings, disposition and treatment plan as described except to the extent set forth below. 1. Admitted with fever up to 101.7. Other symptoms include dizziness/vertigo type symptoms. Decreased reflexes without muscle weakness. 2. CAT scan showed not conclusive superior mesenteric vein thrombosis. Recommend anticoagulation for 6 months. May need long-term anticoagulation per the adult given the unusual location will proceed with hypercoagulable workup Possible fat necrosis and reactive mesentric adenopathy. Currently no conclusive evidence of lymphoma or other malignancy. Also no evidence of myeloproliferative disorder On questioning he had one episode of DVT after knee surgery several years ago and was on anticoagulation for few months. No family history of DVT We will proceed with serum protein electrophoresis and viscosity. Neurology performed lumbar puncture today
--- NOTE | 2018-09-01 15:44 | Electrocardiograph Report ---
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
--- NOTE | 2018-09-01 16:50 | Infectious Disease Progress No ---
ID Progress Note Date of Encounter: 09/01/18 Time of Encounter: 16:48 - Subjective Subjective: Patient seen and examined. Laying in bed. No acute distress. He is insisting that he had fever also the night and his tells me he had 3 fevers last night but on reviewing the record his last temperature of 100.9 was at 1600 yesterday. Patient continues to have headaches and some dizziness. Denies any chest pain or shortness of breath no nausea no vomiting no diarrhea. Patient did have a bowel movement yesterday after given laxative. Patient denies any abdominal pain. No urinary symptoms. Labs noted, imaging reviewed, - Objective CBC & Chem 7: 09/01/18 00:16 09/01/18 00:16 - Exam Vitals: Temp Pulse Resp BP Pulse Ox 99.0 F 74 18 108/60 96 09/01/18 15:57 09/01/18 15:57 09/01/18 15:57 09/01/18 15:57 09/01/18 15:57 Exam: GENERAL: Comfortable. Laying in bed NAD HEENT: ASHLEY, EOMI LUNGS: Good air sounds bilaterally, no wheezing or rhonchi CV: RRR, S1 S2 ABDOMEN: Soft, nontender, + bowel sounds EXT: Adequate perfusion. No edema NEURO: A&OX3; no focal deficit - Assessment and Plan (1) Fever of unknown origin Current Visit: Yes Status: Acute Etiology not clear. Infectious versus inflammatory versus malignancy? Patient denies history of autoimmune disease or vasculitis; his father though was diagnosed with throat cancer at age 62 So far workup is nonrevealing. Normal WBC with normal neutrophil count no bands, normal LFTs, normal urine, negative blood culture, ESR/CRP are 32/46 respectively, respiratory infectious panel within normal limits. Imaging including chest x-ray, head and neck CTA and cervical spine MRI all within normal limit 2-D echo negative for endocarditis CT abdomen and pelvis revealed superior mesenteric vein thrombosis and fat n ecrosis or infart versus omental infarct versus epiploic appendagitis Rheumatoid factor within normal limit pro-calcitonin within normal limit I will continue to observe off antibiotics for now Await hematology and surgery recommendation Discussed with the hospitalist team and hematology team slide if patient takes a turn for the worse clinically I will start empiric antibiotics again At this point and will have an obvious source of infection and I do not have an obvious or index of suspicion for bacterial infection SNOMED Code(s): 2691425 (2) Constipation Current Visit: Yes Status: Acute Patient has not had a bowel movement since His abdominal physical exam shows no guarding, negative Rodrigez sign, no peritoneal signs no rebound. Qualifiers: Qualified Code(s): K59.00 - Constipation, unspecified SNOMED Code(s): 55555109 (3) Dizziness Current Visit: Yes Status: Acute Etiology not clear All workup has been negative by neurology including an MRI, CTA of the head and neck SNOMED Code(s): 347221028, 487116478 (4) Heart murmur, systolic Current Visit: Yes Status: Acute SNOMED Code(s): 95097300 (5) Asthma Current Visit: Yes Status: Acute Qualifiers: Qualified Code(s): J45.909 - Unspecified asthma, uncomplicated SNOMED Code(s): 002351202 (6) Allergy to sulfa drugs Current Visit: Yes Status: Acute was told he was allergic as a baby SNOMED Code(s): 75346238 Consult Discharge Plan - Plan Referrals: Braxton Espinosa MD [Partnered Physician] - 09/17/18 4:15 pm
--- NOTE | 2018-09-01 18:47 | Procedure Note ---
Date of procedure: 09/01/18 (diagnostic lumbar puncture) Pre-op diagnosis: dizziness Post-op diagnosis: same Procedure: Written form of consent obtained from the patient. Patient was placed in decubitus position with lumbar area fully exposed. Areas of puncture was sterilized in standard fashion. Intervertebral space L3-L4 was marked and anesthetized with 1% lidocaine. A 22-gauge of lumbar puncture needle was introduced at L3-L4 intervertebral space. Lumbar puncture procedure was successful after second attempt. About 8 mL of clear CSF was collected into 4 tubes. Lumbar puncture needle was then withdrawn and Band-Aid was applied. Patient tolerated the procedure very well and medications were reported. Possible consequences and post lumbar puncture headaches are discussed with the patient. Anesthesia: local Was there an assistant professor of drama present: No Estimated blood loss (cc): 0 Specimen: CSF Pathology: other Condition: stable
[2018-09-01 19:23] LABS: Red Blood Cell,CSF < 0.002 M/mcL
[2018-09-01 19:24] LABS: Appearance,CSF Clear (Clear)
[2018-09-01 19:50] LABS: Glucose,CSF 68 mg/dL (40-70); Total Protein,CSF 37 mg/dL (15-45)
[2018-09-01 22:06] LABS: Basophils # 0.1 K/mcL (0.0-0.2); Basophils % 0.9 %; Eosinophils # 0.3 K/mcL (0.0-0.6); Eosinophils % 3.6 %; Hemoglobin 11.8 g/dL (12.9-16.9); Immature Granulocytes % 0.3 % (0-4); Lymphocytes # 2.1 K/mcL (0.6-4.6); Lymphocytes % 26.6 %; Mean Corpuscular HGB Conc 32.8 g/dL (31.6-35.5); Mean Corpuscular Hemoglobin 27.9 pg (28.0-33.3); Mean Corpuscular Volume 85.1 fL (83.0-100.0); Mean Platelet Volume 11.8 fL (9.4-12.4); Monocytes # 1.4 K/mcL (0.0-1.3); Monocytes % 17.4 %; Platelet Count 172 K/mcL (140-400); Red Blood Count 4.23 M/mcL (4.19-5.50); Red Cell Distribution Width 13.7 % (11.5-14.5); Segmented Neutrophils % 51.2 %
[2018-09-02] MEDS: Heparin 25,000 UNIT/250 ML D5W 25,000 UNIT/250 ML IV.SOLN IVC SCH (00:37)
[2018-09-02] MEDS: 0.9 % Sodium Chloride 1,000 ML IVC SCH (04:32)
[2018-09-02 05:53] LABS: Basophils # 0.1 K/mcL (0.0-0.2); Basophils % 0.9 %; Eosinophils # 0.3 K/mcL (0.0-0.6); Eosinophils % 3.6 %; Hematocrit 39.4 % (37.5-50.1); Hemoglobin 12.7 g/dL (12.9-16.9); Immature Granulocytes % 0.4 % (0-4); Lymphocytes # 2.5 K/mcL (0.6-4.6); Lymphocytes % 31.6 %; Mean Corpuscular HGB Conc 32.2 g/dL (31.6-35.5); Mean Corpuscular Hemoglobin 27.9 pg (28.0-33.3); Mean Corpuscular Volume 86.6 fL (83.0-100.0); Mean Platelet Volume 11.8 fL (9.4-12.4); Monocytes # 1.3 K/mcL (0.0-1.3); Monocytes % 15.8 %; Neutrophils # 3.8 K/mcL (1.6-8.9); Platelet Count 182 K/mcL (140-400); Red Blood Count 4.55 M/mcL (4.19-5.50); Red Cell Distribution Width 13.9 % (11.5-14.5); Segmented Neutrophils % 47.7 %
[2018-09-02] MEDS: (Ezetimibe 10 MG) PO SCH (08:23)
[2018-09-02] MEDS: (Omega-3 Fatty Acids [Fish Oil] 300 MG) PO SCH (08:23)
[2018-09-02] MEDS: Acetaminophen 325 MG TABLET PO PRN (08:26)
[2018-09-02] MEDS: Loratadine 10 MG TABLET PO SCH (08:26)
[2018-09-02] MEDS: Famotidine 20 MG TABLET PO SCH (08:26)
[2018-09-02] MEDS ORDERED: *HR* Rivaroxaban 15 MG TABLET PO SCH (10:30)
--- NOTE | 2018-09-02 10:32 | Neurology Progress Note ---
Date of Encounter: 09/02/18 Time of Encounter: 10:31 Assessment and Plan (1) Dizziness Current Visit: Yes Status: Acute Clinically, the patient's condition remained stable. He continues to deny return of lightheadedness/dizziness or arm paresthesias. Again, I discussed findings of neuroimaging or specifically imaging of the C-spine which shows minimal spinal canal stenosis at C5-6 and C6-7 as well as neural foraminal narrowing at C4-5 through C6-7. I also discussed DEVELOPMENT SPECIALIST findings and informed the patient at the CSF studies ruled out inflammatory or infectious DEVELOPMENT SPECIALIST pathology. Essentially, there is no neurological cause for dizziness or paresthesias. Today, he is being discharged home by the primary team. Subjective Principal diagnosis: Dizziness, bilateral arm paresthesias Interval history: Patient seen in follow-up for dizziness and bilateral arm paresthesias. He reports today that all symptoms have subsided. His primary concerns at this time are in regards to ongoing fevers and night sweats. I discussed neuroimaging and CSF findings. More specifically discussed that the neuro imaging and CSF did not reveal any acute neurological cause for dizziness or paresthesias, further CSF findings did not reveal DEVELOPMENT SPECIALIST infection or carcinomatosis meningitis. He reports that I was able to adequately answer his questions and denies any further concerns at this time Objective - Constitutional Vitals: Temp Pulse Resp BP Pulse Ox 100.2 F H 97 16 139/56 95 09/02/18 07:16 09/02/18 07:16 09/02/18 07:16 09/02/18 07:16 09/02/18 07:16 Exam: Examination: General Examination: *CONSTITUTIONAL: Alert and oriented x3, no acute distress *GENERAL APPEARANCE OF PATIENT appears healthy and well groomed *EYES: pupils equal, round, reactive to light and accommodation, conjunctiva clear *CARDIOVASCULAR no peripheral edema, distal temperature normal, dorsalis pedis pulses normal. See vital signs Musculoskeletal: *GAIT AND STATION normal, with normal Romberg testing, no abnormalities such as broad base gait or spasticity *ASSESSMENT OF MUSCLE STRENGTH IN THE UPPER AND LOWER EXTREMITIES bilateral deltoid, bicep, tricep, speeder tender strength, hip flexors ,anterior tibialis, dorsoflexion of the foot 5/5 *MUSCLE TONE IN THE UPPER AND LOWER EXTREMITIES normal. No abnormal movements, fasciculations or atrophy identified. Neurological: *ORIENTATION to person, situation, time and place *RECURRENT AND REMOTE MEMORY intact *ATTENTION AND CONCENTRATION are normal *LANGUAGE FUNCTION no significant aphasia or dysarthia was noted. *FUND OF KNOWLEDGE aware of current events, past history, vocabulary *MENTAL attention span and concentration normal. *CN II optic fundi were normal, no papilledema noted. *CN III,IV, PERRLA extraocular eye movements were full, no nystagmus and no ptosis noted. *CN V shows normal sensation and jaw opens symmetrically. *CN VII shows normal facial movement symmetrically, upper and lower bilaterally. *CN VIII shows no significant hearing loss on exam *CN IX,,X palate elevated symmetrically *CN XI normal strength in the sternocleidomastoid muscles, symmetrical shoulder shrugging. *CN XII tongue protruded in the midline, with normal strength and movement. *SENSORY EXAMINATION light touch intact *REFLEXES: deep tendon reflexes were symmetrically diminished diffusely, no pathological reflexes were noted. *CEREBELLAR TESTING normal finger to nose, heel/knee/stokes *PAIN LEVEL 0/10 - Neurological Exam Sensorimotor examination: Present: intact Motor Examination: Present: grossly full strength in all extremities Motor examination - left side: 5/5: deltoids, biceps, triceps, wrist flexion, wrist extension, hip flexors, speeder tender, quadriceps, tibialis Anterior, toe extension (EHL), plantarflexion Sensation intact: Present: intact Posture: Present: other (None) Reflex and gait examination: other (Gait is slightly unsteady but able to correct posture and turn. No ataxic gait, no spastic gait) Mental Status Examination: Present: awake, alert, oriented to person, oriented to place, oriented to time, follows commands appropriately, answers questions appropriately, no agnosia, no aphasia, no aproxia Cranial nerve examination: Present: PERRL, EOMI, visual peñaloza intact, corneal reflexes brisk symmetrically, sensory to face intact, mastication intact, no facial asymmetry is present, no dysarthria, hearing is intact symmetrically, sof t palate elevates bilaterally upon phonation, gag reflex intact, flexes SCM and trapezius muscles symmetrically with full power, tongue protrudes midline, no atrophy or facial fasiculations present Results - Laboratory Findings CBC and BMP: 09/02/18 05:24 09/01/18 00:16 Abnormal lab findings: Abnormal lab results Hgb 12.7 g/dL (12.9-16.9) L 09/02/18 05:24 Hct 36.0 % (37.5-50.1) L 09/01/18 21:47 MCH 27.9 pg (28.0-33.3) L 09/02/18 05:24 1.4 K/mcL (0.0-1.3) H 09/01/18 21:47 ESR 32 mm/hr (0-10) H 08/30/18 14:31 Heparin Anti-Xa, Unfract 0.04 IU/mL (0.30-0.70) L 09/01/18 00:16 Sodium 135 mEq/L (136-145) L 09/01/18 00:16 Chloride 109 mEq/L (98-107) H 09/01/18 00:16 Carbon Dioxide 22 mEq/L (23-29) L 08/29/18 10:40 Glucose 112 mg/dL (70-105) H 09/01/18 00:16 279 (280-300) L 09/01/18 00:16 Calcium 8.5 mg/dL (8.6-10.3) L 09/01/18 00:16 46 mg/L (Less than 10) H 08/30/18 14:31 0.44 ng/mL (0.00-0.15) H 08/31/18 18:08 Consult Discharge Plan - Plan Instructions: Rivaroxaban (By mouth), Asthma (DC), Vertigo (DC), Syncope (DC), Acute Nausea and Vomiting (DC), Weakness (GEN) Referrals: Braxton Espinosa MD [Partnered Physician] - 09/17/18 4:15 pm Prescriptions: Rivaroxaban [Xarelto] 15 mg PO BID #60 tablet
--- NOTE | 2018-09-02 11:45 | Infectious Disease Progress No ---
ID Progress Note Date of Encounter: 09/02/18 Time of Encounter: 11:10 - Subjective Subjective: Patient seen and examined. No acute events noted overnight. Patient states clinically he is unchanged. Continues to have dizziness, intermittent headache, and low-grade temps. States he has chills with the fevers. Denies chest pain, shortness of breath, or cough. Denies nausea, vomiting, diarrhea, or constipation. Last bowel movement was 2 days ago. Denies abdominal pain or u rinary symptoms. Denies oral thrush or skin lesions. - Objective CBC & Chem 7: 09/02/18 05:24 09/01/18 00:16 - Exam Vitals: Temp Pulse Resp BP Pulse Ox 98.8 F 72 16 120/62 95 09/02/18 11:29 09/02/18 11:29 09/02/18 11:29 09/02/18 11:29 09/02/18 11:29 Exam: Head: Atraumatic, normal inspection, normocephalic. Eye: EOMI, PERRLA, no scleral icterus noted. ENT: Mucous membranes moist. No odontogenic infection noted. Neck: Normal inspection, no meningismus. Respiratory: Clear to auscultation. No rales, respiratory distress, rhonchi, or wheezes noted. Cardiovascular: Regular rate and rhythm, S1 and S2 audible. No murmurs, rubs, or gallops. GI: Soft, nondistended, normal bowel sounds. Extremities: No joint swelling, pedal edema, or tenderness noted. Back: Normal inspection. No vertebral tenderness noted. Neurological: Alert, oriented 3, no focal deficits. Psychiatric: normal affect, normal mood. Skin: Dry, intact, warm. Normal color. No rashes. - Assessment and Plan (1) Fever of unknown origin Current Visit: Yes Status: Acute Etiology not clear. Possibly secondary to mesenteric vein thrombosis. Infectious versus inflammatory versus malignancy? Patient denies history of autoimmune disease or vasculitis; his father though was diagnosed with throat cancer at age 62. So far workup is nonrevealing. Normal WBC with normal neutrophil count no bands, normal LFTs, normal urine, negative blood culture, ESR/CRP are 32/46 respectively, respiratory infectious panel within normal limits. Imaging including chest x-ray, head and neck CTA and cervical spine MRI all wit hin normal limit. 2-D echo negative for endocarditis. 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 Pro-calcitonin within normal limit. Status post lumbar puncture 09/01/18 that was negative for pleocytosis. Glucose and protein levels were normal and the CSF. Gram stain is negative and culture is no growth. 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 Gen. surgery consult. No surgical intervention required at this time. Hem/Onc consulted to assist with workup and management. SNOMED Code(s): 63211632 (3) Constipation Current Visit: Yes Status: Resolved CT of the abdomen and pelvis negative for obstruction or ileus. His abdominal physical exam shows no guarding, negative Rodrigez sign, no peritoneal signs no rebound. Had a bowel movement Friday after was given a laxative. Qualifiers: Constipation type: unspecified constipation type Qualified Code(s): K59.00 - Constipation, unspecified SNOMED Code(s): 68603044 (4) Dizziness Current Visit: Yes Status: Acute Etiology not clear. All workup has been negative by neurology including an MRI, CTA of the head and neck. Lumbar puncture completed 09/01/18 nonrevealing for infectious etiology. Neurology consult and following. SNOMED Code(s): 076282558, 989100734 (5) Heart murmur, systolic Current Visit: Yes Status: Chronic SNOMED Code(s): 06935228 (6) Allergy to sulfa drugs Current Visit: Yes Status: Acute Was told he was allergic as a baby. SNOMED Code(s): 29203144 (7) Asthma Current Visit: Yes Status: Acute Qualifiers: Asthma severity: unspecified severity Asthma persistence: unspecified Asthma complication type: unspecified Qualified Code(s): J45.909 - Unspecified asthma, uncomplicated SNOMED Code(s): 631424564 - Recommendations Recommendations: Thus far, workup has been nonrevealing for an infectious etiology of the patient's symptoms or fevers. The low-grade temps could be attributed to the mesenteric vein thrombosis, however, I am not sure that we can say that his dizziness is related to this as well. I will continue to observe off antibiotics for now. Discussed with the hospitalist team and hematology team slide if patient takes a turn for the worse clinically I will start empiric antibiotics again. At this point and will have an obvious source of infection and I do not have an obvious or index of suspicion for bacterial infection. Consult Discharge Plan - Plan Referrals: Braxton Espinosa MD [Partnered Physician] - 09/17/18 4:15 pm
--- NOTE | 2018-09-02 13:34 | Discharge Summary ---
- NOTES TO OUTPATIENT PROVIDER Notes to Outpatient Provider: f/u with PCP within a week. F/u with Hem within 2 weeks. F/u with neuro within 2 weeks. Orders not resulted at time of discharge: Pending orders 08/29/18 11:21 Culture,Blood [BC] Stat 09/01/18 00:16 NOVA IgG HEATHER rflx IFA AM 0400 09/01/18 18:10 Culture,CSF [RM] Routine 09/01/18 18:36 ALEXI,CSF Routine 09/02/18 05:24 Antiphospholipid Synd w reflex AM 0400 Antithrombin III, Activity AM 0400 Factor V Leiden Routine Protein C, Functional AM 0400 Protein Electrophoresis AM 0400 Protein S, Functional AM 0400 Prothrombin [id number] Mutation Routine Viscosity,Serum Routine 09/02/18 16:00 Heparin anti-factor XA UFH [COAG] Routine Date of Encounter: 09/02/18 Time of Encounter: 13:32 - Discharge Diagnosis (1) Mesenteric vein thrombosis Priority: Primary Status: Acute (2) Dizziness Priority: Primary Status: Acute (3) Fever of unknown origin Priority: Primary Status: Acute (4) DVT prophylaxis Priority: Primary Status: Acute Hospital course: Mr. Haskins is a 63 year old male with pmh of asthma, kidney stones presenting with complaints of dizziness of 6 weeks duration that has gotten acutely worse in the last 3 days . 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 he describes the sensation as a feeling of walking in a tunnel. He hasn't passed out and denies feeling like things are spinning around him. He just describes a sensation of an unsteady gait. He has been experiencing worsening fevers in the last 3 days to the point where he says he can't work which is unusual for him, he also describes generalized fatigue. he went to his PCP earlier this week and had an MRI done which came back with no acute findings. He does state that his PCP noted he had a new loud murmur. He also took his temperature at home and says it was 101. In the ER, a head and neck CTA were negative and he's being admitted for further management. Pt underwent extensive workup for fever and dizziness. By further interviewing pt, dizziness is defined as lightheadedness rather than vertigo. Pt also concerning about the heart murmur. ECHO was performed which showed no significant valvular disease or vegetation. Panculture has no identifiable source of infection. CT chest and abd/pelvis showed SMV thrombosis and possible intra-abdominal fat infarct and infection. Heparin gtt was started. CTA head and neck is in-significant. MRI cervical spine has several degenerative care without significant spine stenosis. Neurology was consulted and LP was performed which was negative for infection. Hematology was consulted and thrombophilia workup started and results are pending. A lengthy discussion was performed with family and patient, patient fever is most likely caused by SMV thrombosis, his lightheadedness could be secondary to SMV thrombois, dehydration, or possible dysautonaumic syndrome. He was instructed to drink plenty of water and increase slat intake. Heparin was dc'ed and Xarelto was started on 4th hospital day. Pt will be discharged home today, continue take Xarelto, f/u with PCP, Neurology, and Hematology as scheduled. Discharge discussed with: patient Time spent discussing smoking cessation with patient: more than 10 minutes - Time Spent with Patient Total time spent providing and/or coordinating discharge services: Time spent: Greater than 30 minutes - Discharge Medications Prescriptions: New Rivaroxaban [Xarelto] 15 mg PO BID #60 tablet Continued Ranitidine HCl [Heartburn Relief] 150 mg PO DAILY Loratadine [Claritin] 10 mg PO DAILY Pravastatin Sodium [Pravachol] 40 mg PO DAILY Albuterol Sulfate [Albuterol Inhaler] 2 puff PO Q4-6H PRN PRN Reason: Shortness Of Breath Ezetimibe 10 mg PO DAILY Glucosamine Sulfate Dipot Chlr [Glucosamine] 1,000 mg PO DAILY Ipratropium/Albuterol Sulfate [Iprat-Albut 0.5-3(2.5) mg/3 ml] 3 mg PO BID PRN PRN Reason: Shortness Of Breath Roland-3 Fatty Acids [Fish Oil] 300 mg PO DAILY Fluticasone Propionate Nasal [Flonase] 50 mcg NS DAILY Home Medications: Loratadine [Claritin] 10 mg PO DAILY 11/17/15 [History] Pravastatin Sodium [Pravachol] 40 mg PO DAILY 11/17/15 [History] Ranitidine HCl [Heartburn Relief] 150 mg PO DAILY 11/17/15 [History] Albuterol Sulfate [Albuterol Inhaler] 2 puff PO Q4-6H PRN 08/29/18 [History] Ezetimibe 10 mg PO DAILY 08/29/18 [History] Fluticasone Propionate Nasal [Flonase] 50 mcg NS DAILY 08/29/18 [History] Glucosamine Sulfate Dipot Chlr [Glucosamine] 1,000 mg PO DAILY 08/29/18 [History] Ipratropium/Albuterol Sulfate [Iprat-Albut 0.5-3(2.5) mg/3 ml] 3 mg PO BID PRN 08/29/18 [History] Roland-3 Fatty Acids [Fish Oil] 300 mg PO DAILY 08/29/18 [History] Rivaroxaban [Xarelto] 15 mg PO BID #60 tablet 09/02/18 [Rx] Allergies/Adverse Reactions: Allergy/AdvReac Type Severity Reaction Status Date / Time Sulfa (Sulfonamide Allergy See Verified 08/29/18 10:30 Antibiotics) Comments atorvastatin [From Lipitor] AdvReac Joint Pain Verified 08/29/18 10:30 rosuvastatin [From Crestor] AdvReac Joint Pain Verified 08/29/18 10:30 Date of admission: 09/01/18 15:50 Primary care physician: PCP NONE Consults: 08/29/18 13:50 Consult to Neurology [CONS] Routine Consulting Provider: Neurology [facility] Reason for Consult: unexplained dizziness Call Completed: Yes 08/31/18 10:37 Consult to Infectious Diseases [CONS] Routine Consulting Provider: Infectious Disease [place] Reason for Consult: Fever of unknown origion Time Notified: 10:38 Call Completed: Yes 09/01/18 11:21 Consult to Oncology [CONS] Routine Consulting Provider: Oncology [facility] [place] Reason for Consult: venous thrombus Time Notified: 11:22 Call Completed: Yes Anticipated date of discharge: 09/02/18 - Constitutional Vitals: Temp Pulse Resp BP Pulse Ox 98.8 F 72 16 120/62 95 09/02/18 11:29 09/02/18 11:29 09/02/18 11:29 09/02/18 11:29 09/02/18 11:29 General appearance: Present: A&O X 3 Exam: PHYSICAL EXAMINATION: GENERAL APPEARANCE: The patient is alert, oriented and in no acute distress. HEENT: Head is normocephalic. The sinuses are nontender. Pupils are equal and reactive. The nares are patent. Oropharynx clear without lesions. NECK: Supple without lymphadenopathy. HEART: Regular rate and rhythm. LUNGS: No crackles or wheezes are heard. ABDOMEN: Soft, nontender, nondistended with good bowel sounds heard. Inguinal area is normal. EXTREMITIES: Without cyanosis, clubbing or edema. NEUROLOGICAL: Gross nonfocal. SKIN: Warm and dry without any rash. - Patient Status Disposition: Home, Self-Care Condition: Fair Functional capacity at discharge: independent ambulation Overall status at discharge: patient is progressing back to baseline - Discharge Instructions Follow Up With: Braxton Espinosa MD [Partnered Physician] - 09/17/18 4:15 pm - Diet and Activity Activity: increase activity as tolerated Diet: advance to your usual diet
[2018-09-02 14:07] VITALS: BP 111/31
[2018-09-03 09:52] LABS: ANA IgG by ELISA NONE DETECTED (None Detected)
[2018-09-04 02:04] LABS: APTT (LE Anticoag) 80 sec (32-48); Diluted Russell Viper Venom 30 sec (33-44); LE APTT D Heparin Neutralized 54 sec (32-48); LE Coag APTT Mixing 45 sec (32-48); LE Coag Reptilase Time 17.2 sec (<=21.9); PT (LE-Anticoag) 12.9 sec (12.0-15.5); Thrombin Time 29.3 sec (14.7-19.5)
[2018-09-04 17:30] LABS: Prothrombin G20210A Specimen WHOLE BLOOD
[2018-09-04 17:34] LABS: Alpha 2 Globulin (PEP) 1.21 g/dL (0.48-1.05); Beta Globulin (PEP) 0.86 g/dL (0.48-1.10)
[2018-09-05 10:13] LABS: IFE Reflexed NOT DONE
[2018-09-05 10:16] LABS: Prothrombin G20210A Mut Result NEGATIVE
== END 2018-09-02 15:18 | disposition home or self-care (01) | DRG 441 ==
LOC: EMEROOARM 10:08 → 3BNU 10:08
PROVIDERS: ADMIT Student in an Organized Health Care Education/Training Program; ATTEND Student in an Organized Health Care Education/Training Program